=== PATIENT | male | born 1930 | race Caucasian/White ===

== ENCOUNTER 2018-12-17 14:22 | Emergency (ER) | payer MEDICARE, BC ==
--- NOTE | 2018-12-17 15:06 | ED ---
Upper Extremity Pain - HPI Summary HPI Summary: Patient is an 88 y/o male who presents to the ED c/o LUE pain. He had a cardiac catheterization done at [facility] last week. The physicians initially attempted access through his left forearm however they were not able to gain access, and the procedure was done in his right groin. Patient lives at [facility] and a nurse this morning noticed warmth to his left forearm. Patient c/o pain to the puncture site, rated a 3/10 in severity and described as itching. He denies any left hand pain or fever. Patient is on Eliquis. - History of Current Complaint Chief Complaint: EDRashSkinAbscess Stated Complaint: POSS INFLAMATION ON ARM PER PT Time Seen by Provider: 12/17/18 14:56 Hx Obtained From: Patient Mechanism Of Injury: Other - cardiac cath puncture site Onset/Duration: Still Present Timing: Constant Severity Currently: Moderate - 3/10 Pain Location: Forearm - left Character: Dull - itching Aggravating Factor(s): Nothing Alleviating Factor(s): Nothing Associated Signs & Symptoms: Negative: Fever Related History: Other: - cardiac cath recently - Allergies/Home Medications Allergies/Adverse Reactions: Allergies Allergy/AdvReac Type Severity Reaction Status Date / Time Czayzmi-Dgg-Zcx Reductase Allergy Muscle Ache Verified 12/17/18 14:33 Inhibitor MS Statins [Statins] AdvReac muscle pain Verified 06/12/17 00:14 PMH/Surg Hx/FS Hx/Imm Hx Endocrine/Hematology History: Reports: Hx Anticoagulant Therapy - Y-ASA Denies: Hx Diabetes Cardiovascular History: Reports: Hx Coronary Artery Disease, Hx Hypertension, Other Cardiovascular Problems/Disorders - bypass and aortic valve replacement; aortic valve dysfunction Denies: Hx Pacemaker/ICD Respiratory History: Reports: Hx Chronic Obstructive Pulmonary Disease (COPD) GI History: Reports: Other GI Disorders - colon ca History: Reports: Hx Benign Prostatic Hyperplasia, Other Problems/ Disorders - urgency Musculoskeletal History: Reports: Hx Arthritis - r hip, Other Musculoskeletal History - R shoulder pain Sensory History: Reports: Hx Cataracts, Hx Contacts or Glasses - reading glasses , Hx Vision Problem, Hx Hearing Aid, Hx Hearing Problem Opthamlomology History: Reports: Hx Cataracts, Hx Contacts or Glasses - reading glasses, Hx Vision Problem Neurological History: Reports: Hx Transient Ischemic Attacks (TIA) Psychiatric History: Reports: Hx Depression Denies: Hx Panic Disorder - Cancer History Cancer Type, Location and Year: Colon CA Hx Chemotherapy: Yes - Surgical History Surgery Procedure, Year, and Place: 1947 hernia. septoplasty. 1991 coronary bypass. 1995 colon ca surgery. port placed. port removed. 2002 aortic valve (followed by repair surgery d/t bleeding after - discussed with dr. doyle prior to MRI - okay to scan 1.5t). 2006 hernia. 2006 L total hip. 2013 R total hip. bilateral cataracts Hx Anesthesia Reactions: No Infectious Disease History: No Infectious Disease History: Denies: Traveled Outside the [place] in Last 30 Days - Family History Known Family History: Positive: Cardiac Disease - Social History Alcohol Use: None Hx Substance Use: No Substance Use Type: Reports: None Hx Tobacco Use: Yes Smoking Status (MU): Former Smoker Review of Systems Negative: Fever Positive: Myalgia - left forearm puncture site pain, NEGATIVE: left hand pain All Other Systems Reviewed And Are Negative: Yes Physical Exam - Summary Physical Exam Summary: Appearance: well appearing, no pain distress Skin: warm, dry, reflects adequate perfusion, warmth to distal left forearm, no ecchymosis or warmth of left hand, puncture site near right radial artery Head/face: normal Eyes: EOMI, ZENA ENT: mucous membranes moist Neck: supple, non-tender Respiratory: CTA, breath sounds present Cardiovascular: RRR, pulses symmetrical, blowing systolic murmur Abdomen: non-tender, soft Bowel Sounds: present Musculoskeletal: normal, strength/ROM intact Neuro: normal, sensory motor intact, A&Ox3 Triage Information Reviewed: Yes Vital Signs On Initial Exam: Initial Vitals Temp Pulse Resp BP Pulse Ox 97.4 F 84 18 195/107 97 12/17/18 14:26 12/17/18 14:26 12/17/18 14:26 12/17/18 14:26 12/17/18 14:26 Vital Signs Reviewed: Yes Diagnostics - Vital Signs Vital Signs Temp Pulse Resp BP Pulse Ox 12/17/18 14:26 97.4 F 84 18 195/107 97 - Laboratory Lab Statement: Any lab studies that have been ordered have been reviewed, and results considered in the medical decision making process. - Ultrasound No standard instances Ultrasound Interpretation Completed By: ED Physician, Radiologist Summary of Ultrasound Findings: US performed at bedside by ED physician: apparent left radial vein SVT. Soft Tissue US: Mild subcutaneous edema overlying the left forearm without drainable fluid collection. ED physician reviewed radiology report. Course/Dx - Course Course Of Treatment: Simple phlebitis/cellulitis treated with Augmentin here. Patient recently with vena puncture in the area. No evidence of DVT on ultrasound. - Diagnoses Differential Diagnosis/HQI/PQRI: Positive: Other - DVT, SVT, cellulitis Provider Diagnoses: Phlebitis, Cellulitis Discharge - Sign-Out/Discharge Documenting (check all that apply): Patient Departure - Discharge Patient Received Moderate/Deep Sedation with Procedure: No - Discharge Plan Condition: Improved Disposition: HOME Prescriptions: Amoxicillin/Clavulanate TAB* [Augmentin TAB 875*] 875 mg PO BID #20 tab Patient Education Materials: Superficial Thrombophlebitis (ED) Referrals: Nate Sales MD [Primary Care Provider] - Additional Instructions: Warm compresses to the area, massage and heat may help. Return if fever greater than 100.4, body aches/chills, worse, red streaking or extending redness up the arm, new symptoms or other concerns. Call your doctor first thing in the morning to schedule prompt follow-up. - Billing Disposition and Condition Condition: IMPROVED Disposition: Home - Attestation Statements Document Initiated by Scribe: Yes Documenting Scribe: Tiff Rosario Provider For Whom Ely is Documenting (Include Credential): Aurelio Schmidt MD Scribe Attestation: Tiff Calvo, scribed for Aurelio Schmidt MD on 12/17/18 at 1825. Scribe Documentation Reviewed: Yes Provider Attestation: The documentation as recorded by the Tiff reyes accurately reflects the service I personally performed and the decisions made by me, Aurelio Schmidt MD Status of Scribe Document: Viewed
[2018-12-17] MEDS ORDERED: Amoxicillin/Clavulanate TAB* 875 MG PO ONE ×2 (15:09→15:21)
[2018-12-17 17:47] VITALS: BP 128/88
== END 2018-12-17 16:43 | disposition home or self-care (01) ==
LOC: ED 14:22
DX: I80.8 Phlebitis and thrombophlebitis of other sites (principal); L03.114 Cellulitis of left upper limb; I10 Essential (primary) hypertension; I25.810 Atherosclerosis of coronary artery bypass graft(s) without angina pectoris; J44.9 Chronic obstructive pulmonary disease, unspecified; Z95.1 Presence of aortocoronary bypass graft; Z79.01 Long term (current) use of anticoagulants; Z95.2 Presence of prosthetic heart valve; Z86.73 Personal history of transient ischemic attack (TIA), and cerebral infarction without residual deficits; Z87.891 Personal history of nicotine dependence
CPT/HCPCS: 99282; A9270-GY

== ENCOUNTER 2019-07-31 12:21 | Inpatient (IN) | payer MEDICARE, OTHER ==
[2019-07-31] MEDS ORDERED: NS 0.9% 1000 ML** 1,000 ML IV ONE (12:22)
--- NOTE | 2019-07-31 12:35 | ED ---
HPI Chest Pain - HPI Summary HPI Summary: This patient is a 89 year old M brought to [facility] by EMS coming from [facility] through [facility] called at 1216. EMS reports 1000 am last known well, was reported to have aphasia noted. Per EMS, pt before 1000 AM was driven down from [place] and when arrived he was slightly aphasic per nurse. Per medical records, pt hx aortic valve replacement, CVA and is on eliquis. Per [facility]OR patient on eliquis (confirmed w [place]) so not TPA candidate. Decision made to proceed w CTA given that his last BUN/Creatinine in February were normal. Per son patient has had worsening HART for several months. Recent stent placed. Hx aortic valve (pig) which is due for replacement but is instead being medically managed. - History of Current Complaint Time Seen by Provider: 07/31/19 12:22 Hx Obtained From: EMS, Medical Records Onset/Duration: Started Hours Ago, Still Present Timing: Constant Aggravating Factor(s): Nothing Alleviating Factor(s): Nothing Associated Signs and Symptoms: Positive: Other: - slightly aphasic - Additional Pertinent History Primary Care Physician: [id number] - Allergy/Home Medications Allergies/Adverse Reactions: Allergies Allergy/AdvReac Type Severity Reaction Status Date / Time Dqojger-Rxv-Ity Reductase Allergy Muscle Ache Verified 12/17/18 14:33 Inhibitor MS Statins [Statins] AdvReac muscle pain Verified 06/12/17 00:14 Home Medications: Home Medications Acetaminophen [Acetaminophen Extra Strength] 1,000 mg PO Q8H PRN 07/31/19 [ History Confirmed 07/31/19] Amoxicillin PO (*) [Amoxicillin 500 MG CAP*] 2,000 mg PO ONCE 07/31/19 [History Confirmed 07/31/19] Apixaban* [Eliquis*] 5 mg PO BID 07/31/19 [History Confirmed 07/31/19] Menthol [Bengay Ultra Strength] 1 patch TOPICAL Q12H 07/31/19 [History Confirmed 07/31/19] Metoprolol Tartrate TAB* [Lopressor TAB*] 12.5 mg PO QAM 07/31/19 [History Confirmed 07/31/19] Metoprolol Tartrate TAB* [Lopressor TAB*] 62.5 mg PO QPM 07/31/19 [History Confirmed 07/31/19] Torsemide TAB* [Demadex*] 10 mg PO DAILY 07/31/19 [History Confirmed 07/31/19] National Institutes Of Health - NIH Scale Level of Consciousness: Alert/Keenly Responsive Ask Patient the Month and His/Her Age: One Correct/Not Aphasic Ask Pt to Open/Close Eyes and Rn Clinical Research/Release Non-Paretic Hand: Both Correctly Best Gaze (Only Horizontal Eye Movement): Normal Visual Field Testing: No Visual Loss Facial Paresis-Pt to Smile & Close Eyes or Grimace Symmetry: Minor Paralysis Motor Function - Right Arm: No Drift-Holds 10 Seconds Motor Function - Left Arm: No Drift-Holds 10 Seconds Motor Function - Right Leg: No Drift-Holds 10 Seconds Motor Function - Left Leg: No Drift-Holds 10 Seconds Limb Ataxia-Must be out of Proportion to Weakness Present: Absent Sensory (Use Pinprick to Test Arms/Legs/Trunk/Face): Normal Best Language (Describe Picture, Name Items): Some Loss Dysarthria (Read Several Words): Normal Extinction and Inattention: No Abnormality Total Score: 3 PMH/Surg Hx/FS Hx/Imm Hx Endocrine/Hematology History: Reports: Hx Anticoagulant Therapy - Y-ASA Denies: Hx Diabetes Cardiovascular History: Reports: Hx Coronary Artery Disease, Hx Hypertension, Other Cardiovascular Problems/Disorders - bypass and aortic valve replacement; aortic valve dysfunction Denies: Hx Pacemaker/ICD Respiratory History: Reports: Hx Chronic Obstructive Pulmonary Disease (COPD) GI History: Reports: Other GI Disorders - colon ca History: Reports: Hx Benign Prostatic Hyperplasia, Other Problems/ Disorders - urgency Musculoskeletal History: Reports: Hx Arthritis - r hip, Other Musculoskeletal History - R shoulder pain Sensory History: Reports: Hx Cataracts, Hx Contacts or Glasses - reading glasses , Hx Vision Problem, Hx Hearing Aid, Hx Hearing Problem Opthamlomology History: Reports: Hx Cataracts, Hx Contacts or Glasses - reading glasses, Hx Vision Problem Neurological History: Reports: Hx Transient Ischemic Attacks (TIA) Psychiatric History: Reports: Hx Depression Denies: Hx Panic Disorder - Cancer History Cancer Type, Location and Year: Colon CA Hx Chemotherapy: Yes - Surgical History Surgery Procedure, Year, and Place: 1947 hernia. septoplasty. 1991 coronary bypass. 1995 colon ca surgery. port placed. port removed. 2002 aortic valve (followed by repair surgery d/t bleeding after - discussed with dr. doyle prior to MRI - okay to scan 1.5t). 2006 hernia. 2007 L total hip. 2013 R total hip. bilateral cataracts Hx Anesthesia Reactions: No - Family History Known Family History: Positive: Cardiac Disease - Social History Alcohol Use: None Hx Substance Use: No Substance Use Type: Reports: None Hx Tobacco Use: Yes Smoking Status (MU): Former Smoker Review of Systems Neurological: Other - slightly aphasic All Other Systems Reviewed And Are Negative: Yes Physical Exam - Summary Physical Exam Summary: Constitutional: Well-developed, Well-nourished, Alert. (-) Distressed Skin: Warm, Dry HENT: Normocephalic; Atraumatic Eyes: Conjunctiva normal Neck: Musculoskeletal ROM normal neck. (-) JVD, (-) Stridor, (-) Nuchal rigidity Cardio: Rhythm regular, rate normal, Heart sounds normal; Intact distal pulses; Radial pulses are 2+ and symmetric. (+) Murmur Pulmonary/Chest wall: Effort normal. (-) Respiratory distress, (-) Wheezes, (-) Rales Abd: Soft, (-) tenderness, (-) Distension, (-) Guarding, (-) Rebound Musculoskeletal: pitting edema in ankles Lymph: (-) Cervical adenopathy Neuro: Alert, Oriented x3, mild intermittent aphasia, slight R facial droop otherwise CN 2-12 grossly intact. No dysmetria. Strength 5/5 UE/LE. SILT. Psych: Cooperative Triage Information Reviewed: Yes Vital Signs Reviewed: Yes Procedures - Sedation Patient Received Moderate/Deep Sedation with Procedure: No Diagnostics - Laboratory Result Diagrams: 07/31/19 12:46 07/31/19 12:46 Lab Statement: Any lab studies that have been ordered have been reviewed, and results considered in the medical decision making process. - Radiology Chest X-Ray Radiology Interpretation Completed By: Radiologist Summary of Radiographic Findings: Per radiologist,. Cardiomegaly with interstitial edema consistent with vascular congestion. ED physician has reviewed this imaging report. - CT Brain CT CT Interpretation Completed By: Radiologist Summary of CT Findings: Per radiologist,. 1. NO EVIDENCE FOR GROSS ACUTE INFARCT, MASS EFFECT OR HEMORRHAGE. 2. 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 ED physician has reviewed this imaging report. - EKG 1248 Cardiac Rate: NL - 64 BPM Summary of EKG Findings: An EKG at 1248 reveals normal sinus rhythm (64 BPM), nml axis, nml intervals. No STEMI. No acute changes. Chest Pain Course/Dx - Course Course Of Treatment: 81-year-old male with a history of aortic valve replacement on eliquius, hypertension, previous stroke who presents with aphasia. Initial NIHSS of 3. patient did have improvement and aphasia. 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 Patient's blood pressure decreased to around 150 systolic intervention. Updated patient's son on CT findings, plan for admission for stroke workup. Patient is not a candidate for TPA given that he is on eliquis. - Diagnoses Provider Diagnoses: Aphasia During the Visit The Following Alert/Code Occurred: Code Kelley - Provider Notifications Discussed Care Of Patient With: Nahum Mcelroy - radiologist Time Discussed With Above Provider: 12:40 Instructed by Provider To: Other - No acute stroke on CT; 1301- Lilibeth- CTA is unchanged - Critical Care Time Critical Care Time: 30-74 min - Upon my evaluation, this patient had a high probability of imminent or life-threatening deterioration due to acute stroke which required my direct attention, intervention, and personal management. I have personally provided 30 minutes of critical care time exclusive of time spent on separately billable procedures. Time includes review of laboratory data , radiology results, discussion with consultants, and monitoring for potential decompensation. Interventions were performed as documented above. Discharge ED - Sign-Out/Discharge Documenting (check all that apply): Patient Departure - admitted - Discharge Plan Condition: Stable Disposition: ADMITTED TO [facility] Referrals: Nate Sales MD [Primary Care Provider] - - Billing Disposition and Condition Condition: STABLE Disposition: Admitted to [facility] - Attestation Statements Document Initiated by Alexibe: Yes Documenting Scribe: Emily Boogie Provider For Whom Ely is Documenting (Include Credential): Dr. Pam Leon MD Scribe Attestation: Emily Calvo scribed for Dr. Pam Leon MD on 07/31/19 at 1401. Scribe Documentation Reviewed: Yes Provider Attestation: The documentation as recorded by the Emily reyes accurately reflects the service I personally performed and the decisions made by me, Dr. Pam Leon MD Status of Scribe Document: Viewed
[2019-07-31] MEDS ORDERED: Iodixanol* (CONTRAST) 320 MG/ML 100 ML SDV IV ONE (12:36)
[2019-07-31 12:55] LABS: ABS Eosinophils 0.1 10^3/ul (0-0.6); ABS Lymphocytes 0.9 10^3/ul (1.0-4.8); ABS Monocytes 0.3 10^3/ul (0-0.8); ABS Neutrophils 2.5 10^3/ul (1.5-7.7); Eosinophil % 1.7 %; Hematocrit 32 % (42-52); Hemoglobin 10.6 g/dL (14.0-18.0); Mean Corpuscular HGB Conc 33 g/dL (31-36); Mean Corpuscular Hemoglobin 29 pg (27-31); Mean Corpuscular Volume 88 fL (80-94); Mean Platelet Volume 7.1 fL (7.4-10.4); Platelet Count 152 10^3/uL (150-450); Red Blood Count 3.68 10^6 /uL (4.18-5.48); Red Cell Distribution Width 19 % (10-15); White Blood Count 3.8 10^3/uL (3.5-10.8)
[2019-07-31 13:03] LABS: Activated Partial Thrombo Time 50.1 seconds (26.0-38.0); INR 1.45 (0.82-1.09)
[2019-07-31] MEDS ORDERED: NS 0.9% 500 ML* 500 ML IV ONE (13:10)
[2019-07-31 13:15] LABS: Albumin 4.1 g/dL (3.2-5.2); Albumin/Globulin Ratio 1.4 (1-3); Calcium 9.3 mg/dL (8.6-10.3); EGFR African American 85.3 (>60); EGFR Non-African American 70.5 (>60); HDL Cholesterol 36.6 mg/dL; Potassium 3.9 mmol/L (3.5-5.0); Total Bilirubin 0.7 mg/dL (0.2-1.0); Total Protein 7.1 g/dL (6.4-8.9)
[2019-07-31 13:16] LABS: Troponin I 0.01 ng/mL (<0.03)
[2019-07-31 14:20] LABS: Urine Appearance Clear; Urine Bilirubin Negative (Negative); Urine Blood Negative (Negative); Urine Color Straw; Urine Glucose Negative (Negative); Urine Ketones Negative (Negative); Urine Nitrite Negative (Negative); Urine Protein Negative (Negative); Urine Specific Gravity 1.021 (1.010-1.030); Urine Urobilinogen Negative (Negative)
[2019-07-31] MEDS ORDERED: Acetaminophen TAB* 325 MG PO PRN (14:25)
[2019-07-31] MEDS ORDERED: Ondansetron INJ* 2 MG/ML VIAL IV PRN (14:25)
[2019-07-31] MEDS ORDERED: amLODIPine TAB* 5 MG PO ONE (14:25)
--- NOTE | 2019-07-31 17:05 | ECHO ---
*[facility]* [place] [address] Fax #: [phone] Transthoracic Echocardiogram Patient: Nate Anna : 1930 Study Date: 07/31/2019 Age: 89 Gender: M HR: 66 bpm Height: 72 in /182.9 cm BSA: 2.06 m^2 Weight: 183.6 lb /83.5 kg BMI: 25 kg/m^2 *Smelter Liner: * Lauren Monzon [facility] *Referring Physician: * Cristian Cesar *Reading Physician: * Robert Pisano MD Indications: CVA. History: Coronary artery disease. Cerebrovascular accident. Chronic obstructive pulmonary disease. PMH: Myocardial infarction. Risk factors: Hypertension. Dyslipidemia. Labs, prior tests, procedures, and surgery: Coronary artery bypass grafting. Valve surgery. Aortic valve replacement with a bioprosthetic valve. Conclusions Summary: - Left ventricle: The cavity size is normal. Wall thickness is mildly to moderately increased. Systolic function is normal. The estimated ejection fraction is 60-65%. Doppler parameters are consistent with a reversible restrictive pattern, indicative of decreased left ventricular diastolic compliance and/or increased left atrial pressure (grade 3 diastolic dysfunction). - Right ventricle: Systolic pressure is moderately increased. - Right atrium: The atrium is mildly dilated. - Mitral valve: The Mitral valve annulus appears calcified. The leaflets are mildly thickened. The findings are consistent with mild to moderate stenosis. There is mild regurgitation. The peak E-wave velocity is 1.6 m/sec. The valve area by pressure half-time is 1.5 cm^2. - Aortic valve: There is a bioprosthetic valve. The findings are consistent with moderate stenosis. DI .22 mean gradient of 31 mmhg. The peak systolic velocity is 3.7 m/sec. The systolic velocity-time integral is 97.3 cm. The mean systolic gradient is 31.0 mm Hg. The LVOT to aortic valve VTI ratio is 0.22. The valve area by the velocity-time integral method is 0.75 cm^2. - Tricuspid valve: There is moderate regurgitation. - Pulmonary arteries: Systolic pressure is moderately increased. Study data: Transthoracic echocardiogram. Procedure: Transthoracic echocardiography was performed. Image quality was fair. Complete 2D, spectral Doppler, and color flow Doppler. Location: Emergency department. Patient status: Inpatient. Patient room number: ED-10. Rhythm: Normal sinus rhythm. Findings Left ventricle: The cavity size is normal. Wall thickness is mildly to moderately increased. Systolic function is normal. The estimated ejection fraction is 60-65%. Wall motion is normal; there are no regional wall motion abnormalities. Doppler parameters are consistent with a reversible restrictive pattern, indicative of decreased left ventricular diastolic compliance and/or increased left atrial pressure (grade 3 diastolic dysfunction). Right ventricle: The cavity size is normal. Systolic function is normal. Systolic pressure is moderately increased. Left atrium: The atrium is severely dilated. Right atrium: The atrium is mildly dilated. Atrial septum: A PFO is not demonstrated by color Doppler. Mitral valve: The Mitral valve annulus appears calcified. The leaflets are mildly thickened. The findings are consistent with mild to moderate stenosis. There is mild regurgitation. Aortic valve: Not well visualized. There is a bioprosthetic valve. The findings are consistent with moderate stenosis. There is no significant regurgitation. Tricuspid valve: The leaflets are normal thickness. There is no evidence of stenosis. There is moderate regurgitation. Pulmonic valve: Not well visualized. The leaflets are normal thickness. There is no evidence of stenosis. There is trace regurgitation. Aorta: Aortic root: The aortic root is appears normal. Ascending aorta: The ascending aorta is upper normal in size. Aortic arch: The aortic arch is poorly visualized. Pericardium: There is no significant pericardial effusion. Pulmonary arteries: Not well visualized. Systolic pressure is moderately increased. Systemic veins: Inferior vena cava: The vessel is normal in size. There is (>= 50%) respiratory change in the IVC dimension. Measurements Left ventricle Value Ref Aortic valve Value Ref RENATE, LAX 4.2 cm 4.2 - 5.8 Clifford diam, ED 2.2 cm ----- ESD, LAX (L) 2.4 cm 2.5 - 4.0 Peak v, S 3.7 m/sec ----- FS, LAX 43 % 25 - 43 VTI, S 97.3 cm ----- PW, ED, LAX (H) 1.3 cm 0.6 - 1.0 Mean grad, S 31.0 mm Hg ----- FS 43 % 25 - 43 Peak grad, S 56.0 mm Hg ----- PW, ED (H) 1.3 cm 0.6 - 1.0 LVOT/AV, VTI ratio 0.22 ----- E', lat clifford, TDI (L) 5.7 cm/sec >=10.0 RAMONE, VTI 0.75 cm^2 --- -- E/e', lat clifford, 28 RAMONE, Vmax 0.75 cm^2 ----- TDI E', med clifford, TDI (L) 3.9 cm/sec >=7.0 Mitral valve Value Ref E/e', med clifford, 41 Peak E 1.6 m/sec ----- TDI Peak A 0.51 m/sec ----- E', avg, TDI 4.8 cm/sec Decel time 197 ms ----- E/e', avg, TDI (H) 33 <=14 PHT 130 ms --- -- Mean grad, D 3.0 mm Hg ----- LVOT Value Ref Peak grad, D 11.0 mm Hg ----- Diam, S 2.10 cm Peak E/A ratio 3.1 ----- Area 3.5 cm^2 MVA, PHT 1.5 cm^2 ----- Peak elke, S 0.8 m/sec VTI, S 21.0 cm Pulmonic valve Value Ref Mean grad, S 2 mm Hg Peak v, S 0.91 m/sec ----- SV 72 ml Peak grad, S 3.0 mm Hg ----- SV/bsa 35 ml/m^2 Tricuspid valve Value Ref Ventricular septum Value Ref TR peak v (H) 3.6 m/sec <=2.8 IVS, ED (H) 1.3 cm 0.6 - 1.0 Peak RV-RA grad, S 52 mm Hg ----- Right ventricle Value Ref Aortic root Value Ref RENATE, LAX 2.1 cm Root diam 3.2 cm <4.2 RENATE minor ax, A4C 3.1 cm 1.9 - 3.5 mid Ascending aorta Value Ref Pressure, S 55 mm Hg AAo AP diam, S 3.6 cm ----- Left atrium Value Ref Decending aorta Value Ref AP dim, ES 4.00 cm 3.00 - Sanjana peak elke 1.15 m/sec ----- 4.00 ML dim, A4C 4.9 cm Pulmonary artery Value Ref SI dim, A4C 5.8 cm Pressure, S 52.0 mm Hg ----- Vol/bsa, ES, 1-p (H) 38 ml/m^2 12 - 37 A4C Inferior vena cava Value Ref Vol/bsa, ES, A/L (H) 50 ml/m^2 16 - 34 Diam 2.0 cm ----- Right atrium Value Ref SI dim, ES (H) 5.5 cm 3.4 - 5.3 ML dim, ES, A4C (H) 5.1 cm 2.6 - 4.4 Estimated RAP 3 mm Hg Legend: (L) and (H) kalina values outside specified reference range. Prepared and electronically signed by Robert Pisano MD 07/31/2019 17:05
[2019-07-31] MEDS: Metoprolol Tartrate TAB* 25 MG PO SCH (17:44)
--- NOTE | 2019-07-31 18:15 | HP ---
CC: Dr. Sales; Dr. Fernando* ADMISSION HISTORY AND PHYSICAL: DATE OF ADMISSION: 07/31/19 PRIMARY CARE PROVIDER: Dr. Sales. DINKEY OPERATOR SLATE: Dr. Fernando. HEALTHCARE PROXY: His son, Weston. CODE STATUS: DNR/DNI, discussed with son, confirmed. SOURCE OF INFORMATION: History obtained from interview with the patient, discussion with his son, review of past medical records and discussion with ED physician, Dr. Leon. RELIABILITY: From the patient is poor, from all others is excellent. CHIEF COMPLAINT: Change in neurological status. 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 There was memorial on 07/21/19 after which his son stayed with him for several days, noted him to be increasingly weak, having to stop breathing, almost thought he was going to lose consciousness but did not. His mental status at baseline was described as possibly early dementia, sometimes confusing two words, but still quite intelligent and able to hold in depth conversations. Today, he went to cardiac rehab between and and was noted to be aphasic with drooling. While using an exercise biking, EMS was activated and code cotton was initiated prior to presenting to the emergency room. He scored NIH stroke scale of 3 for mild right facial palsy as well as moderate aphasia, seen in conjunction with Neurology in the emergency room. The patient's son also relays that there had been a discussion regarding replacing his aortic valve but they had opted not to do that. Additionally, he thinks there may had been a procedure within the last month prior to 07/21/19 that may had been PCI, although he is not sure. Seen in the emergency room, the patient no longer had aphasia, although had difficulty naming himself and was repeating words frequently. The son also indicates the patient has been grieving quite significantly since the time of his 's and memorial with bouts of crying. PAST MEDICAL HISTORY: Includes: 1. Bioprosthetic aortic valve replacement. 2. Hypertension. 3. CVA in 2017 and that is presenting with right-sided weakness and broad based gait. 4. TIA. 5. CAD, status post bypass. 6. Colon cancer, status post partial resection in 1995. 7. Hyperlipidemia. 8. COPD. 9. Anemia. 10. Left and right total hip replacements. 11. Eczema. 12. Insomnia. 13. BPH. 14. Inguinal hernias. 15. Depression. 16. Septoplasty and cataract surgery. HOME MEDICATIONS: Include: 1. Mirtazapine 30 mg at bedtime. 2. Torsemide 10 mg daily. 3. Viagra 100 mg as needed. 4. Nitroglycerin 0.4 mg every 5 hours as needed. 5. Metoprolol tartrate 62.5 mg in the evening and 12.5 mg in the morning. 6. Clopidogrel 75 mg daily. 7. Flomax 0.4 mg daily. 8. Multivitamin 1 tab daily. 9. Finasteride 5 mg daily. 10. Eliquis 5 mg twice daily. 11. Vitamin B12 1000 mcg daily. 12. Menthol 1 patch topically twice daily as needed. 13. Atorvastatin 40 mg daily. 14. Acetaminophen 1000 mg every 8 hours as needed. ALLERGIES: STATIN causes muscle pain. FAMILY HISTORY: His father at 66 from CAD. His mother at 46 from a CVA. SOCIAL HISTORY: A former tobacco use. No alcohol. He is a [place] resident. REVIEW OF SYSTEMS: As per HPI, obtained from the patient's son including increased shortness of breath and weakness; otherwise unable to obtain from the patient. PHYSICAL EXAMINATION GENERAL: Sitting up in bed, interactive, pleasant, in no apparent distress. VITAL SIGNS: When seen by this author 180/79, heart rate is 59, respiratory rate is 16, T-max 97.8. He is 98% on room air. HEENT: Oropharynx is clear. He has moist mucous membranes. Sclerae are anicteric. HEART: He has rales in his right base. He has a late peaking systolic ejection murmur in his right upper sternal border. He has a regular rhythm. ABDOMEN: Soft, nontender, nondistended. EXTREMITIES: Warm and well perfused. He has trace right lower extremity edema. NEUROLOGIC: He is alert and oriented x0. He cannot say his first name. He can say his last name. He keeps naming his son's name, his first name, but he is able to carry on other elements of conversation. For instance, he was requesting some lunch because he is hungry. Perseverates on being able to say his name. I do not appreciate any right facial palsy as indicated in the Neurology consult notes. His cranial nerves II through XII were intact, otherwise strength is intact throughout. Visual mckeon intact. DIAGNOSTIC STUDIES/LAB DATA: Labs reviewed: White blood cell count of 3.8, hemoglobin 10.6, platelets 152, INR is 1.5. His urine is bland. Chest x-ray: Mild interstitial edema. Brain CT: No evidence for gross acute infarct, mass effect or hemorrhage. Small old lacunar infarct in the right caudate nucleus. Head CTA: Findings consistent with hemodynamically significant stenosis in the proximal left internal carotid artery which is unchanged since 2017. No evidence of large vessel or intracranial thrombosis. 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 EKG: Mild submillimeter ST depression in inferior leads, III and aVF, no Qs, normal sinus rhythm. ASSESSMENT AND PLAN: This is an 89-year-old man with past medical history as outlined above including history of cerebrovascular accident, thromboembolic in nature, now on Xarelto; history of aortic valve replacement; coronary artery disease, status post bypass, presenting with sudden onset facial drooping and aphasia. 1. Change in neurological status: Concern for cerebrovascular accident versus transient ischemic attack. Right facial palsy was noted to be persistent on Dr. Peres's note, this is more in line with recurrent cerebrovascular accident. We will check an MRI. His lipids had been checked already and he is on the statin. Check hemoglobin A1c with ED labs. Continue home medications which include Plavix and Eliquis. 2. Hypertension, hypertensive urgency, first elevated blood pressure was systolic greater than 200 was noted to be taken while the patient was having his blood drawn. Systolic blood pressure is 180 when seen by this author. I will give him 1 dose of amlodipine and continue his home medications which include torsemide and metoprolol. If remains elevated, may need to treat p.r.n. and/or continue Norvasc. 3. Aortic valve replacement. He does have a late peaking systolic ejection murmur. We will check a transthoracic echocardiogram. We will request records from Dr. Fernando, although notably may be difficult chance day. 4. Internal carotid stenosis and anterior communicating and left anterior cerebral changes, unchanged from 2017, moderate appearing. 5. Code status: DNR/DNI. 6. DVT prophylaxis: Xarelbrian. [id number]/[facility] #: [id number] DEEP
--- NOTE | 2019-07-31 18:40 | CONS ---
CONSULTATION REPORT: DATE OF CONSULT: 07/31/19 PATIENT OF: Dr. Leon and Dr. Sales. HISTORY OF PRESENT ILLNESS: This is an 89-year-old right-handed man who was brought to cardiac rehab at [facility] today at somewhere between 10 and 11. The ambulance crew said he was dropped there abruptly shortly after 10. When we called Stephen they said this happened at 11 when they dropped him off. In any event, around this time, an aphasia was noted and he was drooling while he was on an exercise bike, there may have been some symptoms shortly before this. He was brought by ambulance to the hospital, where he was quickly evaluated and sent immediately to CT scan. CTA at time of ct was done as well because he was on Eliquis. Of note, he has had prior strokes including a TIA many years ago and then in June 2017, he had some right-sided weakness as well as wide-based gait and an MRI scan at that time showed multiple acute and subacute infarcts including his right base ganglia, his left frontotemporal area and his left columba with concern of embolic stroke. He had a CTA at that time, it showed 50% carotid stenosis bilaterally as well as some atherosclerotic disease. Also of significance, he had an echo that showed severe left atrial dilatation and echo in June 2017 that was negative for clot and negative for PFO. He has an aortic valve replacement. He has been on Eliquis at this time, so he is not a tPA candidate. OTHER MEDICAL PROBLEMS: Include coronary artery disease, status post bypass and stent; aortic valve replacement; colon cancer, status post partial colectomy ; hyperlipidemia; COPD; anemia; total hip replacement in 2006 and 2012; eczema; insomnia; hypertension; BPH; bilateral inguinal hernias; and depression. MEDICATIONS: Include Eliquis. We do not have the full list at this time. Stephen will be sending it over and I will dictate an addendum. ALLERGIES: He is allergic to STATINS, which cause muscle pain. FAMILY HISTORY: His father at 66 from coronary artery disease. Mother at 46 from a stroke. SOCIAL HISTORY: He lives at [place] and his in June. He quit smoking more than 20 years and does not drink alcohol or use drugs. REVIEW OF SYSTEMS: Limited because he was unable to give coherent history. PHYSICAL EXAM: Vital signs obtained most recently was 200/89 while the blood is being drawn. Respirations were 16, pulse was 61. He has had no fever. Temperature is not on the chart. NIH stroke scale was 3; 1 for see sheet,1 for mild right facial palsy and 1 for mild to moderate aphasia. On exam, he is alert and oriented. His speech was hesitant and he could name many, but not all objects and he tended to perseverate. He had some difficulty following commands, but could get the hang of it and he tended to perseverate. Cranial Nerves: II through XII showed no visual field cut to finger, he had a mild right facial palsy. Rest of cranial nerves II through XII are intact and normal. Motor exam revealed normal tone and strength, no pronator drift, reflexes 1. Sensation was intact to light touch. There was no extinction to double simultaneous stimulation. Chest is clear. Cardiovascular: Regular rate and rhythm. Abdomen is soft. DIAGNOSTIC STUDIES/LAB DATA: His CT scan showed no bleed and showed some white matter disease including a right caudate nuclei lacunar infarct. I reviewed the films. CTA is pending. His labs are pending. He had normal BUN and creatinine this summer. ASSESSMENT AND PLAN: Mr. Anna had acute onset of an aphasia and right facial weakness beginning 2 to 3 hours ago. He is not a tPA candidate because he is on Eliquis. I think he will not prove to have a large vessel occlusion since his NIH stroke scale 3 is relatively low and usually there is not a large vessel occlusion with an NIH stroke scale of this degree, but we will see what that shows and then proceed from there. It would be reasonable to obtain an MRI scan on him as well and further recommendations will follow the CTA. We will have to treat for blood pressures greater than 180/110, but he was being stressed at the time of his last blood pressure, so we will see what that is. I have spoken to the ER physician about treatment of his blood pressure. He will need to be admitted for further treatment and evaluation. Thank you for sharing his case. [id number]/[facility] #: [id number] DEEP
[2019-07-31] MEDS ORDERED: Apixaban* 5 MG TAB PO SCH (21:00)
[2019-07-31] MEDS: Mirtazapine TAB* 15 MG PO SCH (21:54)
[2019-08-01] MEDS: Atorvastatin* 40 MG TAB PO SCH (08:35)
[2019-08-01] MEDS: Clopidogrel TAB* 75 MG PO SCH (08:35)
[2019-08-01] MEDS: Finasteride TAB* 5 MG PO SCH (08:35)
[2019-08-01] MEDS: Multivitamins/Minerals TAB PO SCH (08:35)
[2019-08-01] MEDS: Torsemide TAB 10 MG PO SCH (08:35)
[2019-08-01] MEDS: Tamsulosin CAP* 0.4 MG PO SCH (08:35)
[2019-08-01] MEDS: Metoprolol Tartrate TAB* 25 MG PO SCH ×2 (08:36→17:30)
[2019-08-01] MEDS: amLODIPine TAB* 5 MG PO SCH (09:45)
--- NOTE | 2019-08-01 13:36 | PN ---
Subjective Date of Service: 08/01/19 Length of Stay: 1 Days Neurology is following Mr. Anna for the evaluation and management of stroke. Interval History: Mr. Anna is emotional this morning and is crying. He shares with me the loss of his recently, one month ago. He has trouble producing words and this has been a constant problem. He has difficulty naming objects. He has a mild right facial droop. He denied any weakness, numbness, swallowing impairment, or visual disturbance on either side. Review of Systems: Denied CP, SOB, or palpitations. Objective Active Medications: Acetaminophen (Tylenol Tab*) 650 mg PO Q4H PRN PRN Reason: PAIN - MILD Amlodipine Besylate (Norvasc Tab*) 5 mg PO DAILY [facility] Last Admin: 08/01/19 09:45 Dose: 5 mg Atorvastatin Calcium (Lipitor*) 40 mg PO DAILY [facility] Last Admin: 08/01/19 08:35 Dose: 40 mg Clopidogrel Bisulfate (Plavix Tab*) 75 mg PO DAILY [facility] Last Admin: 08/01/19 08:35 Dose: 75 mg Finasteride (Proscar Tab*) 5 mg PO DAILY [facility] Last Admin: 08/01/19 08:35 Dose: 5 mg Metoprolol Tartrate (Lopressor Tab*) 12.5 mg PO QAM [facility] Last Admin: 08/01/19 08:36 Dose: 12.5 mg Metoprolol Tartrate (Lopressor Tab*) 62.5 mg PO QPM [facility] Last Admin: 07/31/19 17:44 Dose: 62.5 mg Mirtazapine (Remeron Tab*) 30 mg PO BEDTIME [facility] Last Admin: 07/31/19 21:54 Dose: 30 mg Multivitamins/Minerals (Theragran/Minerals Tab*) 1 tab PO DAILY [facility] Last Admin: 08/01/19 08:35 Dose: 1 tab Ondansetron HCl (Zofran Inj*) 4 mg IV Q4H PRN PRN Reason: NAUSEA/VOMITING Tamsulosin HCl (Flomax Cap*) 0.4 mg PO DAILY [facility] Last Admin: 08/01/19 08:35 Dose: 0.4 mg Torsemide (Torsemide) 10 mg PO DAILY [facility] Last Admin: 08/01/19 08:35 Dose: 10 mg Vital Signs 07/31/19 07/31/19 07/31/19 13:44 14:00 14:14 Temperature Pulse Rate 59 67 63 Respiratory 26 27 26 Rate Blood Pressure 180/79 175/112 (mmHg) O2 Sat by Pulse 98 94 96 Oximetry 07/31/19 07/31/19 07/31/19 14:44 15:00 15:14 Temperature Pulse Rate 63 60 61 Respiratory 23 20 21 Rate Blood Pressure 188/99 170/80 (mmHg) O2 Sat by Pulse 95 97 95 Oximetry 07/31/19 07/31/19 07/31/19 15:38 15:44 16:10 Temperature 97.9 F 98.3 F Pulse Rate 66 63 63 Respiratory 18 23 23 Rate Blood Pressure 187/88 167/84 167/84 (mmHg) O2 Sat by Pulse 99 98 98 Oximetry 07/31/19 07/31/19 07/31/19 17:46 19:17 23:39 Temperature 99.1 F 97.5 F Pulse Rate 62 56 Respiratory 18 22 Rate Blood Pressure 153/60 144/59 137/58 (mmHg) O2 Sat by Pulse 96 94 Oximetry 08/01/19 08/01/19 08/01/19 03:48 07:49 08:00 Temperature 97.5 F 97.6 F Pulse Rate 67 65 Respiratory 20 22 22 Rate Blood Pressure 153/62 188/60 (mmHg) O2 Sat by Pulse 94 94 94 Oximetry Intake and Output Last 24 Hours 07/30/19 07/31/19 08/01/19 08/02/19 06:59 06:59 06:59 06:59 Intake Total 740 240 Balance 740 240 Weight 178 lb 12.8 oz Intake: IV Fluids 500 Oral 240 240 Oxygen Devices in Use Now: None Neurology Exam: General: Well nourished, well developed, and in no acute distress. Very pleasant. HEENT: Normocephelic/atraumatic, sclera anicteric, mucous membranes moist Neck: Supple Chest: Clear to auscultation bilaterally Cardiovascular: holosystolic murmur, nonradiating. Extremities: No clubbing, cyanosis, or edema Neurological Findings: Awake, alert, and oriented to person, place, and date. Language: moderate transcortical motor aphasia. He has no trouble repeating. Comprehension is intact. He has difficulty with naming and fluency. Cranial Nerve: PERRL, EOM intact, VFF, no nystagmus, right facial droop. Motor: s/s throughout, proximal and distal extremities x4 tone/bulk normal Sensation: intact to LT/PP bilaterally upper and lower extremities Deep Tendon Reflex: trace throughout. Finger to nose, rapid alternating movements intact without tremor, no dysdiadochokinesia Gait: wide based gait, no ataxia, required one person assist and a cane. He had infrequent swaying towards the right side. Result Diagrams: 07/31/19 12:46 07/31/19 12:46 Diagnostic Imaging: - CT head without contrast on 07/31/2019: No evidence for gross acute infarct, mass effect, or hemorrhage. There is a small old lacunar infarct in the right caudate nucleaus. - CTA head and neck 07/31/2019: Findings consistent with a hemodynamically significant stenosis in the the right proximal left ICA (70-80%). There is 50% ICA stenosis on the right. 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 - MRI findings are consisten with acute multifocal infarcts in the left frontal lobe. - TTE: left ventricular EF 60-65%. No PFO. 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 Nate Anna is an 89-year-old right-handed man with a history of bioprostehtic aortic valve with moderate-severe aortic stenosis, right lacunar stroke without any residual deficit, bilateral carotid stenosis with 70-80% stenosis in the left ICA, who presented from [place] with sudden onset aphasia. 1. 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 The etiology is related to [id number] emboli from proximal ipsilateral ICA stenosis. Cardioembolic stroke is unlikely since there is only one vascular territory involved. NIHSS: 3 for aphasia and facial droop. He was not a candidate for IV alteplase therapy due to being on Eliquis therapy. There is no evidence of large vessel occlusion. Recommendations: - We need to find out why the patient is on Eliquis therapy. He denied history of atrial fibrillation. - Continue clopidogrel 75 mg a day and atorvastatin 40 mg nightly. - If we find out he has history of atrial fibrillation, or history of an atrial/ ventricular thrombus, continue Eliquis therapy. - Ordered clopidogrel and aspirin response test - Please consult PT/OT/GROUND SERVICES INSTRUCTOR evaluation and treatment - DVT prophylaxis: on Eliquis - Stroke education completed with the patient and his granddaughter Maria C at bedside 2. Symptomatic left ICA stenosis. The patient failed conservative medical management. Referral to a vascular surgeon to be seen within 2-3 weeks would be the most appropriate option if the patient is willing to undergo surgery. Dr. Cesar has agreed to discuss this with family and HCP. Dr. Green ( neurovascular surgeon) sees patients in [place] once a month. Depending on the patient and family's decision, it would be reasonable to establish care with Dr. Green. 3. AComm anuerysm. Asymptomatic and is < 5 mm. Low risk for rupture (0.05%/ year). 4. Dyslipidemia: continue atorvastatin therapy
--- NOTE | 2019-08-01 15:09 | PN ---
Subjective Date of Service: 08/01/19 Interval History: Seen this AM No complaints but frustrated with language difficulty Objective Active Medications: Acetaminophen (Tylenol Tab*) 650 mg PO Q4H PRN PRN Reason: PAIN - MILD Amlodipine Besylate (Norvasc Tab*) 5 mg PO DAILY [facility] Last Admin: 08/01/19 09:45 Dose: 5 mg Apixaban (Eliquis*) 5 mg PO BID [facility] Atorvastatin Calcium (Lipitor*) 40 mg PO DAILY [facility] Last Admin: 08/01/19 08:35 Dose: 40 mg Clopidogrel Bisulfate (Plavix Tab*) 75 mg PO DAILY [facility] Last Admin: 08/01/19 08:35 Dose: 75 mg Finasteride (Proscar Tab*) 5 mg PO DAILY [facility] Last Admin: 08/01/19 08:35 Dose: 5 mg Metoprolol Tartrate (Lopressor Tab*) 12.5 mg PO QAM [facility] Last Admin: 08/01/19 08:36 Dose: 12.5 mg Metoprolol Tartrate (Lopressor Tab*) 62.5 mg PO QPM [facility] Last Admin: 07/31/19 17:44 Dose: 62.5 mg Mirtazapine (Remeron Tab*) 30 mg PO BEDTIME [facility] Last Admin: 07/31/19 21:54 Dose: 30 mg Multivitamins/Minerals (Theragran/Minerals Tab*) 1 tab PO DAILY [facility] Last Admin: 08/01/19 08:35 Dose: 1 tab Ondansetron HCl (Zofran Inj*) 4 mg IV Q4H PRN PRN Reason: NAUSEA/VOMITING Tamsulosin HCl (Flomax Cap*) 0.4 mg PO DAILY [facility] Last Admin: 08/01/19 08:35 Dose: 0.4 mg Torsemide (Torsemide) 10 mg PO DAILY [facility] Last Admin: 08/01/19 08:35 Dose: 10 mg Vital Signs - 8 hr 08/01/19 08/01/19 08/01/19 07:49 08:00 09:30 Temperature 97.6 F Pulse Rate 65 Respiratory 22 22 Rate Blood Pressure 188/60 170/82 (mmHg) O2 Sat by Pulse 94 94 Oximetry Oxygen Devices in Use Now: None Appearance: NAD Eyes: No Scleral Icterus, PERRLA Ears/Nose/Mouth/Throat: NL Teeth, Lips, Gums, Clear Oropharnyx Neck: NL Appearance and Movements; NL JVP, Trachea Midline Respiratory: Symmetrical Chest Expansion and Respiratory Effort, Clear to Auscultation Cardiovascular: RRR, - - late peaking high pitched [place] loudest in RUSB Abdominal: NL Sounds; No Tenderness; No Distention, No Hepatosplenomegaly Lymphatic: No Cervical Adenopathy Extremities: No Edema, No Clubbing, Cyanosis Neurological: - - Difficulty with first name, slurred speech, right facial droop Result Diagrams: 07/31/19 12:46 07/31/19 12:46 Diagnostic Imaging: - CT head without contrast on 07/31/2019: No evidence for gross acute infarct, mass effect, or hemorrhage. There is a small old lacunar infarct in the right caudate nucleaus. - CTA head and neck 07/31/2019: Findings consistent with a hemodynamically significant stenosis in the the right proximal left ICA (70-80%). There is 50% ICA stenosis on the right. 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 - MRI findings are consisten with acute multifocal infarcts in the left frontal lobe. - TTE: left ventricular EF 60-65%. No PFO. 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 - Total cholesterol: 103 LDL: 55 Assess/Plan/Problems-Billing Assessment: 89 yo M h/o AVR, dCHF, CAD/CABG embolic CVAs in 2017 presented with embolic CVAs - Patient Problems (1) Aortic stenosis Comment: At least moderate on TTE Reportedly declined repeat surgery Requesting records from PCP and management specialist (2) CAD (coronary artery disease) Comment: Reported recent [facility] records from [facility] c/w plavix (3) CVA (cerebral vascular accident) Code(s): I63.9 - CEREBRAL INFARCTION, UNSPECIFIED Comment: Suspect from left IC stenosis Will discuss possible intervention with patient and arrange follow up as necessary Plavix, statin c/w eliquis and request records from PCP and management specialist regarding why it was started or if known afib (4) HTN (hypertension) Comment: norvasc metoprolol (5) DVT (deep venous thrombosis) Comment: [place]
[2019-08-01] MEDS: Mirtazapine TAB* 15 MG PO SCH (20:59)
[2019-08-01] MEDS: Apixaban* 5 MG TAB PO SCH (21:00)
[2019-08-02] MEDS: amLODIPine TAB* 5 MG PO SCH (05:59)
[2019-08-02] MEDS: Metoprolol Tartrate TAB* 25 MG PO SCH ×2 (08:57→17:24)
[2019-08-02] MEDS: Clopidogrel TAB* 75 MG PO SCH (08:57)
[2019-08-02] MEDS: Apixaban* 5 MG TAB PO SCH ×2 (08:57→22:18)
[2019-08-02] MEDS: Multivitamins/Minerals TAB PO SCH (08:57)
[2019-08-02] MEDS: Atorvastatin* 40 MG TAB PO SCH (08:57)
[2019-08-02] MEDS: Tamsulosin CAP* 0.4 MG PO SCH (08:57)
[2019-08-02] MEDS: Finasteride TAB* 5 MG PO SCH (08:57)
[2019-08-02] MEDS: Torsemide TAB 10 MG PO SCH (08:57)
--- NOTE | 2019-08-02 15:44 | PN ---
Subjective Date of Service: 08/02/19 Length of Stay: 2 Days Neurology is following for stroke. Interval History: He feels better today. He is able to speak but with a low monotonous voice. He denied any headache, visual disturbance, or focal weakness. He still feels sad and cried during our interview. He's been walking around the hallway yesterday. According to Maria C, he has had less drooling. While walking the patient today, he informed me that he was on aspirin and Eliquis at home. He is not sure if he was taking Plavix, but he stated that he may have been. It's unclear. In [facility] [place], the patient is not on Plavix and was only on Eliquis and aspirin. Labs, imaging, and other diagnostic tests: - CT head without contrast on 07/31/2019: No evidence for gross acute infarct, mass effect, or hemorrhage. There is a small old lacunar infarct in the right caudate nucleaus. - CTA head and neck 07/31/2019: Findings consistent with a hemodynamically significant stenosis in the the right proximal left ICA (70-80%). There is 50% ICA stenosis on the right. 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 - MRI findings are consisten with acute multifocal infarcts in the left frontal lobe. - TTE: left ventricular EF 60-65%. No PFO. 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 Objective Active Medications: Acetaminophen (Tylenol Tab*) 650 mg PO Q4H PRN PRN Reason: PAIN - MILD Amlodipine Besylate (Norvasc Tab*) 5 mg PO DAILY [facility] Last Admin: 08/02/19 05:59 Dose: 5 mg Apixaban (Eliquis*) 5 mg PO BID [facility] Last Admin: 08/02/19 08:57 Dose: 5 mg Atorvastatin Calcium (Lipitor*) 40 mg PO DAILY [facility] Last Admin: 08/02/19 08:57 Dose: 40 mg Clopidogrel Bisulfate (Plavix Tab*) 75 mg PO DAILY [facility] Finasteride (Proscar Tab*) 5 mg PO DAILY [facility] Last Admin: 08/02/19 08:57 Dose: 5 mg Metoprolol Tartrate (Lopressor Tab*) 12.5 mg PO QAM [facility] Last Admin: 08/02/19 08:57 Dose: 12.5 mg Metoprolol Tartrate (Lopressor Tab*) 62.5 mg PO QPM [facility] Last Admin: 08/01/19 17:30 Dose: 62.5 mg Mirtazapine (Remeron Tab*) 30 mg PO BEDTIME [facility] Last Admin: 08/01/19 20:59 Dose: 30 mg Multivitamins/Minerals (Theragran/Minerals Tab*) 1 tab PO DAILY [facility] Last Admin: 08/02/19 08:57 Dose: 1 tab Ondansetron HCl (Zofran Inj*) 4 mg IV Q4H PRN PRN Reason: NAUSEA/VOMITING Tamsulosin HCl (Flomax Cap*) 0.4 mg PO DAILY [facility] Last Admin: 08/02/19 08:57 Dose: 0.4 mg Torsemide (Torsemide) 10 mg PO DAILY [facility] Last Admin: 08/02/19 08:57 Dose: 10 mg Vital Signs 08/01/19 08/01/19 08/01/19 15:49 19:58 23:22 Temperature 97.4 F 97.1 F 97.8 F Pulse Rate 64 58 59 Respiratory 18 20 17 Rate Blood Pressure 152/66 143/67 171/74 (mmHg) O2 Sat by Pulse 97 95 96 Oximetry 08/02/19 08/02/19 08/02/19 00:03 03:15 04:46 Temperature 97.3 F 97.4 F Pulse Rate 61 59 Respiratory 20 20 Rate Blood Pressure 180/78 174/75 160/60 (mmHg) O2 Sat by Pulse 98 98 Oximetry 08/02/19 08/02/19 08/02/19 07:15 08:00 11:17 Temperature 97.2 F 97.2 F Pulse Rate 62 59 Respiratory 20 20 Rate Blood Pressure 168/74 166/64 (mmHg) O2 Sat by Pulse 96 96 97 Oximetry 08/02/19 15:32 Temperature 98.1 F Pulse Rate 65 Respiratory 16 Rate Blood Pressure 152/63 (mmHg) O2 Sat by Pulse 97 Oximetry Intake and Output Last 24 Hours 07/31/19 08/01/19 08/02/19 08/03/19 06:59 06:59 06:59 06:59 Intake Total 740 790 570 Output Total 525 Balance 740 265 570 Weight 178 lb 12.8 oz Intake: IV Fluids 500 Oral 240 790 570 Output: Urine 525 Other: # Bowel Movements 1 # Voids 3 Oxygen Devices in Use Now: None Neurology Exam: General: Well nourished, well developed, and in no acute distress. Very pleasant. HEENT: Normocephelic/atraumatic, sclera anicteric, mucous membranes moist Neck: Supple Chest: Clear to auscultation bilaterally Cardiovascular: holosystolic murmur, nonradiating. Extremities: No clubbing, cyanosis, or edema Neurological Findings: Awake, alert, and oriented to person, place, and date. Language: moderate transcortical motor aphasia. He has no trouble repeating. Comprehension is intact. He has difficulty with naming and fluency. Cranial Nerve: PERRL, EOM intact, VFF, no nystagmus, right facial droop. Motor: s/s throughout, proximal and distal extremities x4 tone/bulk normal Sensation: intact to LT/PP bilaterally upper and lower extremities Deep Tendon Reflex: trace throughout. Finger to nose, rapid alternating movements intact without tremor, no dysdiadochokinesia Gait: wide based gait, no ataxia, required one person assist and a cane. He had infrequent swaying towards the right side. Result Diagrams: 07/31/19 12:46 07/31/19 12:46 Diagnostic Imaging: - CT head without contrast on 07/31/2019: No evidence for gross acute infarct, mass effect, or hemorrhage. There is a small old lacunar infarct in the right caudate nucleaus. - CTA head and neck 07/31/2019: Findings consistent with a hemodynamically significant stenosis in the the right proximal left ICA (70-80%). There is 50% ICA stenosis on the right. 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 - MRI findings are consisten with acute multifocal infarcts in the left frontal lobe. - TTE: left ventricular EF 60-65%. No PFO. 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 1. 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 The etiology is suspected to be related to [id number] emboli from proximal ipsilateral ICA stenosis. Cardioembolic stroke is unlikely since there is only one vascular territory involved. NIHSS: 3 for aphasia and facial droop. He was not a candidate for IV alteplase therapy due to being on Eliquis therapy. There is no evidence of large vessel occlusion. Recommendations: - The patient was on Eliquis and aspirin therapy. He was apparently no taking clopidogrel at home, according to Dr. Cesar and the MAR in [facility]. - Continue clopidogrel 75 mg a day and atorvastatin 40 mg nightly. - Continue Eliquis 5 mg twice daily. - There is no TEG platelet mapping available at [facility], so this test was not ordered. - Recommendations per PT/OT/ACTUARIAL TECHNICIAN - DVT prophylaxis: on Eliquis - Stroke education completed with the patient and his granddaughter Maria C at bedside 2. Symptomatic left ICA stenosis. The patient failed conservative medical management. Family and the patient are contemplating any further surgery. The patient had declined aortic valve surgery in the past. Dr. Cesar will provide family with options. Referral to a vascular surgeon to be seen within 2-3 weeks would be the most appropriate option if the patient is willing to undergo carotid surgery. Dr. Green (neurovascular surgeon) sees patients in [place] once a month. Depending on the patient and family's decision, it would be reasonable to establish care with Dr. Green. 3. AComm anuerysm. Asymptomatic and is < 5 mm. Low risk for rupture (0.05%/ year). 4. Dyslipidemia: continue atorvastatin therapy 5. Reported history of paroxysmal atrial fibrillation: continue Eliquis I will sign off but please note that I am available for any questions. I will set the patient up with a neurology follow-up in 3-4 weeks.
--- NOTE | 2019-08-02 17:27 | PN ---
Subjective Date of Service: 08/02/19 Interval History: Seen with granddaughter and son at bedside Pt feeling better today, speech is improving No complaints Objective Active Medications: Acetaminophen (Tylenol Tab*) 650 mg PO Q4H PRN PRN Reason: PAIN - MILD Amlodipine Besylate (Norvasc Tab*) 5 mg PO DAILY [facility] Last Admin: 08/02/19 05:59 Dose: 5 mg Apixaban (Eliquis*) 5 mg PO BID [facility] Last Admin: 08/02/19 08:57 Dose: 5 mg Atorvastatin Calcium (Lipitor*) 40 mg PO DAILY [facility] Last Admin: 08/02/19 08:57 Dose: 40 mg Clopidogrel Bisulfate (Plavix Tab*) 75 mg PO DAILY [facility] Finasteride (Proscar Tab*) 5 mg PO DAILY [facility] Last Admin: 08/02/19 08:57 Dose: 5 mg Metoprolol Tartrate (Lopressor Tab*) 12.5 mg PO QAM [facility] Last Admin: 08/02/19 08:57 Dose: 12.5 mg Metoprolol Tartrate (Lopressor Tab*) 62.5 mg PO QPM [facility] Last Admin: 08/01/19 17:30 Dose: 62.5 mg Mirtazapine (Remeron Tab*) 30 mg PO BEDTIME [facility] Last Admin: 08/01/19 20:59 Dose: 30 mg Multivitamins/Minerals (Theragran/Minerals Tab*) 1 tab PO DAILY [facility] Last Admin: 08/02/19 08:57 Dose: 1 tab Ondansetron HCl (Zofran Inj*) 4 mg IV Q4H PRN PRN Reason: NAUSEA/VOMITING Tamsulosin HCl (Flomax Cap*) 0.4 mg PO DAILY [facility] Last Admin: 08/02/19 08:57 Dose: 0.4 mg Torsemide (Torsemide) 10 mg PO DAILY [facility] Last Admin: 08/02/19 08:57 Dose: 10 mg Vital Signs - 8 hr 08/02/19 08/02/19 11:17 15:32 Temperature 97.2 F 98.1 F Pulse Rate 59 65 Respiratory 20 16 Rate Blood Pressure 166/64 152/63 (mmHg) O2 Sat by Pulse 97 97 Oximetry Oxygen Devices in Use Now: None Appearance: sitting in chair, NAD Eyes: No Scleral Icterus Ears/Nose/Mouth/Throat: NL Teeth, Lips, Gums, Clear Oropharnyx Neck: NL Appearance and Movements; NL JVP, Trachea Midline Respiratory: Symmetrical Chest Expansion and Respiratory Effort, Clear to Auscultation Cardiovascular: RRR Abdominal: NL Sounds; No Tenderness; No Distention, No Hepatosplenomegaly Lymphatic: No Cervical Adenopathy Extremities: No Edema Neurological: Alert and Oriented x 3, - - aphasic but able to produce words slowly, AOx3, mild right facial droop Result Diagrams: 07/31/19 12:46 07/31/19 12:46 Diagnostic Imaging: - CT head without contrast on 07/31/2019: No evidence for gross acute infarct, mass effect, or hemorrhage. There is a small old lacunar infarct in the right caudate nucleaus. - CTA head and neck 07/31/2019: Findings consistent with a hemodynamically significant stenosis in the the right proximal left ICA (70-80%). There is 50% ICA stenosis on the right. 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 - MRI findings are consisten with acute multifocal infarcts in the left frontal lobe. - TTE: left ventricular EF 60-65%. No PFO. 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 - Total cholesterol: 103 LDL: 55 Assess/Plan/Problems-Billing Assessment: 89 yo M h/o AVR, dCHF, CAD/CABG embolic CVAs in 2017 presented with embolic CVAs - Patient Problems (1) CVA (cerebral vascular accident) Code(s): I63.9 - CEREBRAL INFARCTION, UNSPECIFIED Comment: Suspect from left IC stenosis Pt will f/u with neurology and arrange for vascular f/u if desired Was no ASA and was not on plavix prior to stay (cards records obtained) start Plavix and stop ASA c/w statin c/w eliquis (there was brief afib when monitored by cards in 2017) (2) CAD (coronary artery disease) Comment: Reported recent C where they did not find CAD but did find subclavian stenosis s/p angioplasty c/w plavix h/o CABG (3) Aortic stenosis Comment: At least moderate on TTE h/o AVR (4) HTN (hypertension) Comment: norvasc metoprolol (5) DVT (deep venous thrombosis) Comment: sierra
[2019-08-02] MEDS: Mirtazapine TAB* 15 MG PO SCH (22:18)
[2019-08-03] MEDS: Tamsulosin CAP* 0.4 MG PO SCH (08:22)
[2019-08-03] MEDS: Atorvastatin* 40 MG TAB PO SCH (08:22)
[2019-08-03] MEDS: Metoprolol Tartrate TAB* 25 MG PO SCH (08:22)
[2019-08-03] MEDS: Multivitamins/Minerals TAB PO SCH (08:22)
[2019-08-03] MEDS: Apixaban* 5 MG TAB PO SCH (08:22)
[2019-08-03] MEDS: Torsemide TAB 10 MG PO SCH (08:23)
[2019-08-03] MEDS: amLODIPine TAB* 5 MG PO SCH (08:23)
[2019-08-03] MEDS: Finasteride TAB* 5 MG PO SCH (08:23)
[2019-08-03] MEDS ORDERED: Aspirin EC TAB* 325 MG PO SCH (09:00)
[2019-08-03] MEDS ORDERED: Clopidogrel TAB* 75 MG PO SCH (09:00)
--- NOTE | 2019-08-03 11:56 | DS ---
CC: Dr. Sales* DISCHARGE SUMMARY: DATE OF ADMISSION: 07/31/19 DATE OF DISCHARGE: 08/03/19 PRIMARY CARE PROVIDER: Dr. Sales. DISPOSITION ON DISCHARGE: [place]. CONDITION ON DISCHARGE: Improved. PRIMARY DIAGNOSES: 1. Acute multifocal infarction in the left frontal lobe. 2. Left internal carotid artery stenosis. SECONDARY DIAGNOSES: Include: 1. Coronary artery disease, status post coronary artery bypass grafting and recent left subclavian artery angioplasty in December. 2. History of bioprosthetic aortic valve for at least moderate aortic valve stenosis. 3. Hypertension. 4. History of cerebrovascular accident in 2017. 5. Chronic obstructive pulmonary disease. 6. Anemia. 7. Insomnia. 8. Depression. 9. Atrial fibrillation. MEDICATIONS ON DISCHARGE: 1. Mirtazapine 30 mg at bedtime. 2. Torsemide 10 mg daily. 3. Viagra 100 mg once as needed. 4. Nitroglycerin 0.4 mg every 5 minutes as needed for pain. 5. Metoprolol tartrate 62.5 mg in the evening and 12.5 mg in the morning. 6. Clopidogrel 75 mg daily. 7. Tamsulosin 0.4 mg daily. 8. Multivitamin 1 tab daily. 9. Finasteride 5 mg daily. 10. Eliquis 5 mg twice daily. 11. Vitamin B12 1000 mcg daily. 12. Menthol 1 patch topically every 12 hours. 13. Atorvastatin 40 mg daily. 14. Acetaminophen 1000 mg every 8 hours as needed. 15. Amlodipine 5 mg daily. Please note the initiation of amlodipine for hypertension. PERTINENT IMAGING PERFORMED DURING THE HOSPITAL STAY: Brain MRI, impression: Acute multifocal infarcts in the left frontal lobe. Head CTA, impression: Hemodynamically significant stenosis in the proximal left internal carotid artery 70% to 80%. No evidence for large vessel intracranial thrombosis. 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 HISTORY OF PRESENT ILLNESS AND HOSPITAL COURSE: This is an 89-year-old man with past medical history as outlined in the history of present illness on the day of admission including history of CVAs in 2017, which are thought to be embolic in nature. He was noted to have brief atrial fibrillation on a Holter monitor performed by Dr. Fernando per Dr. Fernando's records, after which he has been maintained on Eliquis. At that time, he was also noted to have internal carotid artery on the left, was not intervened upon at that time, however, presented at this time with frontal multifocal infarcts in the left frontal lobe thought to be artery-artery embolization from internal carotid artery. The patient had significant aphasia on the date of presentation, improved dramatically throughout the hospital stay, still was dysarthric on the day of discharge, however, able to carry out a conversation, name all objects. His physical condition dramatically improved as well and was working well with Physical Therapy. His prognosis for full recovery is very good at this point. He was noted to be hypertensive throughout the hospital stay, was started on 5 mg of amlodipine with good control. Per Dr. Fernando's records, he had been started on aspirin status post balloon angioplasty of subclavian artery, which was thought to be blocking his DELGADILLO graft. His aspirin is now changed to clopidogrel, which was not included in any of the med reconciliations from Dr. Fernando's office. Hopefully, the change will impart some benefit to the patient status post multifocal infarcts. The patient will follow up with Neurology status post hospital stay. I had the opportunity to schedule with Dr. Johns, Vascular Surgery, who comes from [place] to critical access hospital in order to discuss potential internal carotid or carotid endarterectomy. At this point , the patient unclear whether he will pursue a carotid endarterectomy, but would like to discuss with Neurology and possible Vascular Surgery at a later time. The patient is being discharged to [facility] for additional services status post stroke with hope that he improves, will not need these services in the future. At followup, please: 1. Continue to deliver rehab services that include speech and physical therapy. 2. The patient should be maintained on a nectar thick fluid without straws. Reevaluate as the patient's function improves and readjust as necessary. I suspect as has his speech improved so will his swallowing function. 3. Ensure the patient follows up with Neurology. 4. The patient recently started on Remeron prior to this hospital stay, can titrate as necessary for depression. Reasons to return to the hospital including, but are not limited to, recurrent or worsening symptoms, asymmetric strength, worsening dysarthria, lethargy, chest pain, shortness of breath, nausea, vomiting, lightheadedness, loss of consciousness, or inability to obtain or tolerate medications was discussed with the patient; he acknowledged understanding. TIME SPENT: Greater than 60 minutes was spent on the discharge of this patient , greater than half was spent [id number] with the patient. [id number]/[facility] #: [id number] MARCELINOD
[2019-08-03 12:54] VITALS: BP 142/61
== END 2019-08-03 14:00 | DRG 65 ==
LOC: ED 12:21 → MEDTELE 14:25 → OBSVTOIN 17:30
PROVIDERS: ADMIT Internal Medicine; ATTEND Internal Medicine
DX: I63.412 Cerebral infarction due to embolism of left middle cerebral artery (principal); I50.32 Chronic diastolic (congestive) heart failure; R47.01 Aphasia; I25.10 Atherosclerotic heart disease of native coronary artery without angina pectoris; E78.5 Hyperlipidemia, unspecified; J44.9 Chronic obstructive pulmonary disease, unspecified; N40.0 Benign prostatic hyperplasia without lower urinary tract symptoms; F32.9 Major depressive disorder, single episode, unspecified; R29.810 Facial weakness; R29.703 NIHSS score 3; I65.23 Occlusion and stenosis of bilateral carotid arteries; I48.0 Paroxysmal atrial fibrillation; H91.90 Unspecified hearing loss, unspecified ear; I67.1 Cerebral aneurysm, nonruptured; Z66 Do not resuscitate; R47.1 Dysarthria and anarthria; I16.0 Hypertensive urgency; I11.0 Hypertensive heart disease with heart failure; D64.9 Anemia, unspecified; G47.00 Insomnia, unspecified; Z96.641 Presence of right artificial hip joint; Z79.02 Long term (current) use of antithrombotics/antiplatelets; Z95.1 Presence of aortocoronary bypass graft; Z95.5 Presence of coronary angioplasty implant and graft; Z95.2 Presence of prosthetic heart valve; Z85.038 Personal history of other malignant neoplasm of large intestine; Z88.8 Allergy status to other drugs, medicaments and biological substances; Z87.891 Personal history of nicotine dependence; Z86.73 Personal history of transient ischemic attack (TIA), and cerebral infarction without residual deficits; Z79.01 Long term (current) use of anticoagulants
CPT/HCPCS: 36415; 70450; 70496; 70498; 70551; 71045; 80053; 80061; 81003; 83036; 83605; 84484; 85025; 85610; 85730; 93005; 93306; 99285; A9270-GY; G0378; G8978-GP-CJ; G8979-GP-CI; G8987-GO-CK; G8988-GO-CI; Q9967

== ENCOUNTER 2019-09-19 22:07 | Emergency (ER) | payer MEDICARE, OTHER ==
--- NOTE | 2019-09-19 22:42 | ED ---
Lower Extremity - HPI Summary HPI Summary: This pt is an 89 Y/O M brought to [facility] after a fall that occurred after leaving his bathroom this evening. He states that his L hip is in pain and rated a 5/10 in severity. He states that he was unable to stand on his own. He denies any fevers, chills, headaches, LOC, head injury, and N/V. He states that he had a recent stroke on 08/08/2019 and has been at [facility] for further therapies and treatment. He has aggravating factors with movement of his L leg. He states that resting is improving his pain. He is currently on eliquis. - History of Current Complaint Chief Complaint: EDFall Stated Complaint: LT HIP PAIN PER EMS Time Seen by Provider: 09/19/19 22:33 Hx Obtained From: Patient Mechanism Of Injury: Fall From A Standing Position Onset of Pain: Immediate Onset/Duration: Still Present Severity Initially: Moderate Severity Currently: Moderate Pain Intensity: 5 Pain Scale Used: 0-10 Numeric Timing: Constant Location: Is Discrete @ - L hip Associated Signs And Symptoms: Positive: Negative - chills, headaches, LOC, head injury, and N/V, Other - POSITIVE: L hip pain. Negative: Fever Aggravating Factor(s): Movement - L leg Alleviating Factor(s): Rest - Allergies/Home Medications Allergies/Adverse Reactions: Allergies Allergy/AdvReac Type Severity Reaction Status Date / Time [id number] Reductase Allergy Muscle Ache Verified 12/17/18 14:33 Inhibitor PMH/Surg Hx/FS Hx/Imm Hx Previously Healthy: Yes Endocrine/Hematology History: Reports: Hx Anticoagulant Therapy - Y-ASA Denies: Hx Diabetes Cardiovascular History: Reports: Hx Coronary Artery Disease, Hx Hypertension, Other Cardiovascular Problems/Disorders - bypass and aortic valve replacement; aortic valve dysfunction Denies: Hx Pacemaker/ICD Respiratory History: Reports: Hx Chronic Obstructive Pulmonary Disease (COPD) GI History: Reports: Other GI Disorders - colon ca History: Reports: Hx Benign Prostatic Hyperplasia, Other Problems/ Disorders - urgency Denies: Hx Renal Disease Musculoskeletal History: Reports: Hx Arthritis - r hip, Other Musculoskeletal History - R shoulder pain Sensory History: Reports: Hx Cataracts, Hx Contacts or Glasses, Hx Vision Problem, Hx Hearing Aid, Hx Hearing Problem Opthamlomology History: Reports: Hx Cataracts, Hx Contacts or Glasses, Hx Vision Problem Neurological History: Reports: Hx Transient Ischemic Attacks (TIA) Psychiatric History: Reports: Hx Depression Denies: Hx Panic Disorder - Cancer History Cancer Type, Location and Year: Colon CA Hx Chemotherapy: Yes - Surgical History Surgery Procedure, Year, and Place: 1947 hernia. septoplasty. 1991 coronary bypass. 1995 colon ca surgery. port placed. port removed. 2002 aortic valve (followed by repair surgery d/t bleeding after - discussed with dr. doyle prior to MRI - okay to scan 1.5t). 2005 hernia. 2006 L total hip. 2012 R total hip. bilateral cataracts Hx Anesthesia Reactions: No Infectious Disease History: No Infectious Disease History: Denies: Traveled Outside the [place] in Last 30 Days - Family History Known Family History: Positive: Cardiac Disease - Social History Alcohol Use: None Hx Substance Use: No Substance Use Type: Reports: None Hx Tobacco Use: Yes Smoking Status (MU): Former Smoker Review of Systems Constitutional: Negative - head injury Negative: Fever, Chills Negative: Vomiting, Nausea Neurological/Mental Status: Negative - LOC Negative: Headache All Other Systems Reviewed And Are Negative: Yes Physical Exam - Summary Physical Exam Summary: Appearance: Well-appearing, Well-nourished, lying in bed comfortably Skin: Warm, dry, no obvious rash, no obvious external signs of head truama Eyes: sclera anicteric, no conjunctival pallor ENT: mucous membranes moist, pharynx appears normal Neck: Supple, nontender Respiratory: Clear to auscultation, no signs of respiratory distress Cardiovascular: Normal S1, S2. No murmurs. Normal distal pulses in tibial and radial bilaterally. Abdomen: Soft, nontender, normal active bowel sounds present Musculoskeletal: Normal, Strength/ROM Intact, tenderness over the greater trochanter of the L hip, no obvious pain with hip rotation or flexion. Neurological: A&Ox3, awake and alert, mentation is normal, speech is fluent and appropriate Psychiatric: affect is normal, does not appear anxious or depressed GCS: 15 Triage Information Reviewed: Yes Vital Signs On Initial Exam: Initial Vitals Temp Pulse Resp BP Pulse Ox 98.1 F 53 18 141/61 95 09/19/19 22:17 09/19/19 22:17 09/19/19 22:17 09/19/19 22:17 09/19/19 22:17 Vital Signs Reviewed: Yes - [place] Coma Scale Best Eye Response: 4 - Spontaneous Best Motor Response: 6 - Obeys Commands Best Verbal Response: 5 - Oriented Coma Scale Total: 15 Procedures - Sedation Patient Received Moderate/Deep Sedation with Procedure: No Diagnostics - Vital Signs Vital Signs Temp Pulse Resp BP Pulse Ox 09/19/19 22:17 98.1 F 53 18 141/61 95 - Laboratory Lab Statement: Any lab studies that have been ordered have been reviewed, and results considered in the medical decision making process. - Radiology Hip/Pelvis X-Ray Radiology Interpretation Completed By: ED Physician Summary of Radiographic Findings: Bilateral hip prosthesis, no periprostehtic fracture, no pelvic fracture. Pending offical review. - CT Brain CT CT Interpretation Completed By: Radiologist Summary of CT Findings: 1. There is stable age-related diffuse cerebral volume loss and chronic. microvascular ischemic disease. There are new small foci of encephalomalacia in. the left frontal lobe suspicious for chronic infarct. 2. No acute intracranial pathology. ED physician has reviewed this report. Lower Extremity Course/Dx - Course Course Of Treatment: This pt is an 89 Y/O M brought to [facility] after a fall that occurred after leaving his bathroom this evening. He states that his L hip is in pain and rated a 5/10 in severity. He states that he was unable to stand on his own. He denies any fevers, chills, headaches, LOC, head injury, and N/V. He states that he had a recent stroke on 08/08/2019 and has been at [facility] for further therapies and treatment. His PE found that he has tenderness over the greater trochanter of the L hip, no obvious pain with hip rotation or flexion, and no obvious external signs of head truama. His Hip/ Pelvis X-Ray shows the following: Bilateral hip prosthesis, no periprostehtic fracture, no pelvic fracture. His Brain CT shows: 1. There is stable age- related diffuse cerebral volume loss and chronic. microvascular ischemic disease. There are new small foci of encephalomalacia in the left frontal lobe suspicious for chronic infarct. 2. No acute intracranial pathology. - Diagnoses Provider Diagnoses: Contusion, hip Discharge ED - Sign-Out/Discharge Documenting (check all that apply): Patient Departure - discharge - Discharge Plan Condition: Good Disposition: HOME Patient Education Materials: Contusion in Adults (ED) Referrals: [facility] [Outside] - If Needed - Billing Disposition and Condition Condition: GOOD Disposition: Home - Attestation Statements Document Initiated by E[place]: Yes Documenting Scribe: Derrell Barney Provider For Whom Ely is Documenting (Include Credential): Sharif Ferreira MD Scribe Attestation: Derrell Calvo, scribed for Sharif Ferreira MD on 09/21/19 at 0353. Scribe Documentation Reviewed: Yes Provider Attestation: The documentation as recorded by the Derrell reyes accurately reflects the service I personally performed and the decisions made by me, Sharif Ferreira MD Status of Scribe Document: Viewed
--- OUTSIDE RECORDS SUMMARY | 2019-09-19 22:56 | XMS REPORT | Summary of Care ---
:1930 Author Organization [facility] Address [address] [facility] [place] [address] Care Team Providers Name Role Phone Nate Sales Primary Care Provider Carine Wang [employer] Nurse Practitioner Primary Care Reason for Visit Reason Comments Transitional Care Management [facility] 07/31-08/03/19 dx: CVA also from skilled to c -house at [facility] Edema concerned with weight gain despite medication (torsemide) Form Completion review MOLST form Hypertension f/u Coronary Artery Disease f/u questioning aspects of surgery Labs Only f/u last done 08/28/19 Medication Check need losartan refilled Encounter Details Date Type Department Care Team Description 09/18/2019 Office Visit [place] Nate Scruggs MD 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 (Primary Dx); [address] [facility] [address] Paroxysmal atrial fibrillation ([facility]); [place] [address] [place] [address] Stenosis of left subclavian artery ([facility]); [phone] Coronary artery disease involving coronary bypass graft of [place] heart with other forms of angina pectoris ([facility]); [phone] Primary osteoarthritis of right knee (Fax) Allergies Active Allergy Reactions Severity Noted Date Comments Statins Musculoskeletal 08/31/2011 Muscle pain and weakness documented as of this encounter (statuses as of 09/18/2019) Medications Medication Sig Dispensed Refills Start Date End Date Status cyanocobalamin Take 1,000 mcg 0 Active (VITAMIN B-12) 1000 by mouth MCG Oral Tab DAILY. Multiple Take 2 Caps by 0 Active Vitamins-Minerals mouth DAILY. (PRESERVISION AREDS PO) acetaminophen Take 1,000 mg 0 Active (TYLENOL) 500 MG by mouth EVERY Oral Tab SIX HOURS NEEDED for Pain. ELIQUIS 5 MG Oral TAKE 1 TAB BY 180 Tab 3 08/14/2018 Active Tab MOUTH TWICE DAILY. nitroglycerin PLACE 1 TAB 50 Tab 9 11/24/2018 Active (NITROSTAT) 0.4 MG UNDER TONGUE Sublingual SL EVERY FIVE TabIndications: MINUTES Angina pectoris NEEDED FOR (HCC) CHEST PAIN. finasteride Take 1 Tab by 90 Tab 3 01/09/2019 Active (PROSCAR) 5 MG Oral mouth DAILY. Tab amoxicillin TAKE 4 TABLETS 12 Cap 2 01/09/2019 Active (AMOXIL, POLYMOX, ONE HOUR TRIMOX) 500 MG Oral BEFORE DENTAL Cap PROCEDURE mirtazapine Take 1 Tab by 90 Tab 1 02/06/2019 Active (REMERON) 30 MG mouth EVERY Oral Tab BEDTIME. metoprolol Take 0.5 Tabs 135 Tab 3 03/13/2019 Active (LOPRESSOR) 25 MG by mouth Oral DIRECTED. TabIndications: Please cut Angina pectoris tabs in half, (HCC) take 1/2 tab in am and two 1/2 tabs in pm Tamsulosin HCl TAKE 1 CAP BY 90 Cap 3 03/19/2019 Active (FLOMAX) 0.4 MG MOUTH DAILY. Oral Cap Aspirin 81 MG Oral Take 81 mg by 0 Active Tab mouth DAILY. apixaban (ELIQUIS) Take 1 Tab by 180 Tab 3 06/04/2019 Active 5 MG Oral Tab mouth TWICE DAILY. atorvastatin Take 1 Tab by 90 Tab 3 08/24/2019 Active (LIPITOR) 40 MG mouth DAILY. Oral Tab amLodipine Take 1 Tab by 90 Tab 3 08/24/2019 Active (NORVASC) 5 MG Oral mouth DAILY. Tab torsemide (DEMADEX) Take 1 Tab by 30 Tab 11 09/12/2019 Active 20 MG Oral Tab mouth DAILY. losartan (COZAAR) Take 1 Tab by 90 Tab 4 09/18/2019 Active 25 MG Oral Tab mouth DAILY. losartan (COZAAR) Take 1 Tab by 30 Tab 11 09/18/2019 09/18/19 Discontinued 25 MG Oral Tab mouth DAILY. 20 (Reorder) documented as of this encounter (statuses as of 09/18/2019) Active Problems Problem Noted Date Cerebrovascular accident (CVA) due to embolism 11/05/2018 Herniated nucleus pulposus, L3-4 right 02/16/2018 Radicular low back pain 02/02/2018 Chronic pain of right knee 02/02/2018 Closed nondisplaced fracture of shaft of fifth metacarpal bone of left 2017 hand with routine healing Hand pain, left 12/30/2017 Pain in joint involving right pelvic region and thigh 12/30/2017 Solar purpura 12/27/2017 Stenosis of left subclavian artery 12/27/2017 Paroxysmal atrial fibrillation 08/15/2017 Shortness of breath 06/17/2015 CAD (coronary artery disease) 04/17/2014 S/P AVR (aortic valve replacement) 04/17/2014 Angina pectoris 04/17/2014 Actinic keratosis 11/21/2013 Overview: left lower leg History of total right hip replacement 09/07/2012 BMI 26.0-26.9,adult 03/02/2011 BPH (benign prostatic hyperplasia) 09/17/2009 Sensorineural hearing loss, bilateral 09/27/2008 Depression 12/06/2007 HTN (hypertension), benign 10/04/2007 Insomnia 10/04/2007 Personal history of malignant neoplasm of large intestine 08/14/2007 Pure hypercholesterolemia 08/14/2007 Chronic airway obstruction, not elsewhere classified 08/14/2007 Anemia, unspecified 08/14/2007 Hip joint replacement by other means 04/21/2007 Osteoarthrosis, unspecified whether generalized or localized, pelvic 2006 region and thigh Inguinal hernia without mention of obstruction or gangrene, unilateral or 10/2005 unspecified, (not specified as recurrent) Malignant neoplasm of colon 12/29/2004 Erectile dysfunction Macular puckering documented as of this encounter (statuses as of 09/18/2019) Resolved Problems Problem Noted Date Resolved Date BPH (benign prostatic hypertrophy) 10/04/2007 09/17/2009 Overview: Replaced inactive diagnosis Cor Athrscl-Uns Vessel 08/14/2007 07/18/2014 Heart valve replaced by other means 12/01/2004 04/17/2014 documented as of this encounter (statuses as of 09/18/2019) Immunizations Name Administration Dates Next Due H1N1 Injectable Adult 07/08/2009 Influenza (IM) Preservative Free 05/21/2015, 05/14/2014, 04/23/2013, 04/20/2012, 05/13/2011, 05/17/2008 Influenza Vaccine High Dose 05/10/2019, 05/01/2018, 05/18/2017, 05/19/2016 Influenza Vaccine Whole 05/29/2007, 05/20/2004, 05/28/2003, 05/29/2001 Influenza Virus Vaccine Pres Free 6-35 05/11/2010 Months PNEUMOCOCCAL POLYSACCHARIDE VACCINE 07/28/1995 TDAP Vaccine 06/01/2011 ZOSTER (ZOSTAVAX) VACCINE 10/10/2009 dT Vaccine 04/06/2004 documented as of this encounter Social History Tobacco Use Types Packs/Day Years Used Date Former Smoker Pipe 50 Quit: 03/02/2002 Smokeless Tobacco: Never Used Comments: quit 2003 Alcohol Use Drinks/Week oz/Week Comments No 0 Standard drinks or equivalent 0.0 Sex Assigned at Date Recorded Not on file Job Start Date Occupation Industry Not on file Not on file Not on file Travel History Travel Start Travel End No recent travel history available. documented as of this encounter Last Filed Vital Signs Vital Sign Reading Time Taken Comments Blood Pressure 108/58 09/18/2019 6:20 PM EST Pulse 60 09/18/2019 6:20 PM EST Temperature - - Respiratory Rate - - Oxygen Saturation - - Inhaled Oxygen Concentration - - Weight 85.7 kg (189 lb) 09/18/2019 6:20 PM EST Height - - Body Mass Index 26.36 09/11/2019 1:47 PM EST documented in this encounter Progress Notes Nate Sales MD - 09/18/2019 5:50 PM EST PATIENT: Nate Anna : 1930 DATE OF SERVICE: 09/18/2019 CHIEF COMPLAINT: Chief Complaint Patient presents with Transitional Care Management [facility] 07/31-08/03/19 dx: CVA also from skilled to c-house at [facility] concerned with weight gain despite medication (torsemide) Form Completion review MOLST form Hypertension f/u Coronary Artery Disease f/u questioning aspects of surgery Labs Only f/u last done 08/28/19 Medication Check need losartan refilled Subjective HISTORY OF PRESENT ILLNESS: Nate Anna is a 89-y.o. male. HPI This elderly man with coronary disease, bioprosthetic aortic valve, thromboembolic strokes in 2017, had evidence of acute left hemispheric stroke and was admitted to [facility] in late July 2019 when he was noted to have a aphasia with drooling from the right side of his mouth. He had multifocal left-sided frontal lobe infarcts and this was thought by hospitalist team to be artery to artery embolization from the internal carotid artery. CT angiogram of the head showed Hemodynamically significant stenosis of the proximal left internal carotid artery, 70 to 80%, but no evidence for large vessel intracranial thrombosis. 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 His aphasia improved but he still had dysarthria on the day of discharge after a 3-day hospital stay. He was discharged on Eliquis which he had been taking for paroxysmal A. fib, and had aspirin switched to Plavix. He also had hypertension and was started on amlodipine 5 mg a day. He was [facility] to [facility] had speech therapy and physical therapy, had nectar thickened liquids without straws, and did well enough that he was discharged to assisted living after approximately 5 weeks in the retirement. In the retirement he had right knee pain and I injected his right knee with 40 mg of Depo-Medrol, and this has improved his knee pain greatly. He also had hypertension that was difficult to control but this got better after the addition of losartan 25 mg a day. He has had no new neurologic events. He has some easy bruising from his Eliquis with Plavix. He saw vascular surgery nurse practitioner Zeina Pearson and vascular surgeon Dr Saucedo recently, who are in the process of reviewing outside records and will make further recommendations at a follow-up visit later this month. They performed carotid ultrasonography that day with a 0 to 49% stenosis seen in the right internal carotid and a 50 to 69% stenosis seen in the left internal carotid with severe plaque in bilateral bulbs and proximal internal carotids where flow was not visualized due to extensive plaque shadowing. His bioprosthetic aortic valve was thought to be stenosed but detailed assessment of this with spring former hand Dr. Salas in [place] revealed that it did not need replaced again. 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 Patient is now complaining of some dyspnea with exertion and it is unclear as to whether this is a change from earlier in 2019, or just because of general deconditioning due to all the other medical problems he has had. Past Medical History: Diagnosis Date Anemia, unspecified 08/14/2007 BPH Chronic airway obstruction, not elsewhere classified 08/14/2007 Colonic polyp Coronary atherosclerosis of unspecified type of vessel, [place] or graft Eczema Erectile dysfunction HEART VALVE REPLAC NEC 12/01/2004 HIP JOINT REPLACEMENT STATUS 04/21/2007 HTN (hypertension), benign Insomnia Macular puckering MALIGNANT NEOPLASM COLON NOS 12/29/2004 OSTEOARTHROSIS HIP 01/27/2007 Paroxysmal atrial fibrillation (HCC) 08/15/2017 Personal history of malignant neoplasm of large intestine 08/14/2007 Pure hypercholesterolemia 08/14/2007 Family History Problem Relation Age of Onset Stroke Mother Heart Father [place], brain aneurysm Anesth Problems No family history Arthritis No family history Cancer No family history Clotting Disorder No family history Diabetes No family history Heart Disease No family history Hypertension No family history Kidney Disease No family history Thyroid Disease No family history Current Outpatient Medications Medication Sig acetaminophen (TYLENOL) 500 MG Oral Tab Take 1,000 mg by mouth EVERY SIX HOURS NEEDED for Pain. amLodipine (NORVASC) 5 MG Oral Tab Take 1 Tab by mouth DAILY. amoxicillin (AMOXIL, POLYMOX, TRIMOX) 500 MG Oral Cap TAKE 4 TABLETS ONE HOUR BEFORE DENTAL PROCEDURE apixaban (ELIQUIS) 5 MG Oral Tab Take 1 Tab by mouth TWICE DAILY. Aspirin 81 MG Oral Tab Take 81 mg by mouth DAILY. atorvastatin (LIPITOR) 40 MG Oral Tab Take 1 Tab by mouth DAILY. cyanocobalamin (VITAMIN B-12) 1000 MCG Oral Tab Take 1,000 mcg by mouth DAILY. ELIQUIS 5 MG Oral Tab TAKE 1 TAB BY MOUTH TWICE DAILY. finasteride (PROSCAR) 5 MG Oral Tab Take 1 Tab by mouth DAILY. losartan (COZAAR) 25 MG Oral Tab Take 1 Tab by mouth DAILY. metoprolol (LOPRESSOR) 25 MG Oral Tab Take 0.5 Tabs by mouth DIRECTED. Please cut tabs in half, take 1/2 tab in am and two 1/2 tabs in pm mirtazapine (REMERON) 30 MG Oral Tab Take 1 Tab by mouth EVERY BEDTIME. Multiple Vitamins-Minerals (PRESERVISION AREDS PO) Take 2 Caps by mouth DAILY. nitroglycerin (NITROSTAT) 0.4 MG Sublingual SL Tab PLACE 1 TAB UNDER TONGUE EVERY FIVE MINUTES NEEDED FOR CHEST PAIN. Tamsulosin HCl (FLOMAX) 0.4 MG Oral Cap TAKE 1 CAP BY MOUTH DAILY. torsemide (DEMADEX) 20 MG Oral Tab Take 1 Tab by mouth DAILY. No current facility-administered medications for this visit. Allergies Allergen Reactions Statins Musculoskeletal Muscle pain and weakness Social History Socioeconomic History Marital status: Spouse name: Not on file Number of children: Not on file Years of education: Not on file Highest education level: Not on file Occupational History Not on file Social Needs Financial resource strain: Not on file Food insecurity Worry: Not on file Inability: Not on file Transportation needs Medical: Not on file Non-medical: Not on file Tobacco Use Smoking status: Former Smoker Years: 50.00 Types: Pipe Last attempt to quit: 03/02/2002 Years since quittin.5 Smokeless tobacco: Never Used Tobacco comment: quit 2003 Substance and Sexual Activity Alcohol use: No Alcohol/week: 0.0 standard drinks Drug use: No Sexual activity: Yes Partners: Female Lifestyle Physical activity Days per week: Not on file Minutes per session: Not on file Stress: Not on file Relationships Social connections Talks on phone: Not on file Gets together: Not on file Attends faith service: Not on file Active member of club or organization: Not on file Attends meetings of clubs or organizations: Not on file Relationship status: Not on file Intimate partner violence Fear of current or ex partner: Not on file Emotionally abused: Not on file Physically abused: Not on file Forced sexual activity: Not on file Other Topics Concern Not on file Social History Narrative Not on file REVIEW OF SYSTEMS: Review of Systems Constitutional: Negative for malaise/fatigue. Eyes: Negative for blurred vision. Respiratory: Positive for shortness of breath. Cardiovascular: Negative for chest pain. Gastrointestinal: Negative for abdominal pain. Musculoskeletal: Negative for falls. Neurological: Positive for speech change and focal weakness. Negative for seizures and loss of consciousness. Psychiatric/Behavioral: Positive for memory loss. Negative for depression. The patient is not nervous/anxious. Objective PHYSICAL EXAM: VITALS: BP 108/58 (BP Location: Right arm, Patient Position: Sitting) | Pulse 60 | Wt 189 lb (85.7 kg) | BMI 26.36 kg/m Body mass index is 26.36 kg/m . Physical Exam Reveals an elderly man who speaks slowly, but in no acute distress. HEENT is unremarkable. No obvious facial droop. Neck has faint bruit on the left side lungs clear. Heart regular with grade 2/6 systolic ejection murmur at the left sternal border radiating to the aortic area. Extremities have trace1+ edema. He walks with a cane ASSESSMENT / IMPRESSION: ICD-9-CM ICD-10-CM 1. 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 Paroxysmal atrial fibrillation (HCC)stable continue Eliquis 427.31 I48.0 3. Stenosis of left subclavian artery (HCC)might need reassessed given his worsening shortnessof breath 447.1 I77.1 4. Coronary artery disease involving coronary bypass graft of [place] heart with other forms of angina pectoris (HCC)clinically stable 414.05 I25.708 413.9 5. Primary osteoarthritis of right kneebetter after steroid injection 715.16 M17.11 TCM Statement. Review of the hospitalization: I am seeing for transition of care following hospitalization. The date of discharge was: September 12, 2019 The discharge diagnosis was left hemispheric frontal stroke. I reviewed the discharge summary, discharge instructions, and pertinent additional documentation obtained during hospitalization. I reconciled the medications. I also reviewed the Transition of Care documentation done by staff. The tests that were not available at the time of discharge were reviewed. Additional tests which are not yet available include: None Coordination of care. - I am satisfied that appropriate referrals are in place to deal with the problems identified during hospitalization, and that the patient has adequate community resources and support in place. - Additional testing related to hospitilization was requested today: no See orders. I confirmed the patient's understanding of the diagnosis and plan of care. Specific education that was provided today: There are no Patient Instructions on file for this visit. The current and discharge medications were reconciled by an RN, telephonically on September 14, 2019 The source document was written list of medications given to the patient CC: Dr Saucedo, Dr Salas, Dr Neelam Fernando author: Nate Sales MD 09/18/2019 22:22 documented in this encounter Plan of Treatment Date Type Specialty Care Team Description 10/02/2019 Office Visit Vascular Surgery Faizan Saucedo MD [address] [place] [address] [phone] 11/13/2019 Orders Only Cardiology 11/19/2019 Office Visit Cardiology Jose Fernando MD [address] [place] [address] [phone] Health Maintenance Due Date Last Done Comments PNEUMOCOCCAL 65+YRS (1 of 2 07/28/1996 07/28/1995 - PCV13) ZOSTER IMMUNIZATION SERIES 12/05/2009 10/10/2009 (2 of 3) MEDICARE ANNUAL WELLNESS 03/17/2016 03/17/2015 (Previously VISIT completed) DEPRESSION SCREENING 04/06/2020 04/06/2019, 04/06/2019 FALL RISK ASSESSMENT 09/18/2020 09/18/2019, 09/18/2019 DTaP/Tdap/Td Vaccines (3 - 06/01/2021 06/01/2011, 04/06/2004 Tdap) INFLUENZA VACCINE Completed 05/10/2019, 05/01/2018, 05/18/2017, Additional history exists HEPATITIS A IMMUNIZATION Aged Out No longer eligible SERIES based on patient's age to complete this topic HPV IMMUNIZATION SERIES Aged Out No longer eligible based on patient's age to complete this topic MENINGOCOCCAL VACCINE IMM Aged Out No longer eligible based on patient's age to complete this topic documented as of this encounter Goals Goal Patient Goal Associated Recent Patient-Stated? Author Type Problems Progress Blood Pressure Blood Pressure 108/58 No Mónica, < 150/90 (09/18/2019 MD Nate 6:20 PM EST) Note: This is an individualized treatment (blood pressure) goal for Nate Reinosol: Displayed above (on the left) is your goal for blood pressure control. Your most recent blood pressure is also shown above, on the right. You should try to achieve blood pressures that are lower than your goal listed above (on the left). Depression screen (PHQ-9) Depression 3 (04/06/2019 4:15 PM No Nate Sales MD total score < 5 EDT) Note: This is an individualized treatment (depression) goal for Nate Day Gell: Displayed above is your goal for a depression screening (PHQ-9) score that would indicate good control of your depression. Keep a regular sleep schedule Lifestyle No Nate Sales MD Note: This is an individualized lifestyle goal for Nate Anna: Please maintain a regular sleep schedule. This may help with some symptoms of depression. Keep immunizations current Lifestyle No Nate Sales MD Note: This is an individualized lifestyle goal for Nate Anna: Please be sure to keep up-to-date on recommended immunizations. For example, this would include a yearly influenza vaccine. Immunization status can be seen by looking at the Health Maintenance sections of your e[facility], Plan of Care, and any After Visit Summaries. Take all prescribed medications as directed Self-management No Nate Sales MD Note: This is an individualized self-management goal for Nate Anna: Please take all prescribed medications as directed. 1. Do not skip doses. If you cannot afford your medications, talk with your doctor. 2. Use a pill reminder system such as a pill box if needed. Your pharmacist can help you with this. 3. Contact your Pharmacy 5 days before your medication runs out. If you cannot take your medications for any reasons, talk with your doctor. 4. Please bring all of your medication bottles and inhalers (or a list of all your medications/inhalers) with you to every visit. Potential barriers to meeting all of your care plan goals will continue to be addressed on an ongoing basis. documented as of this encounter Implants Implanted Type Area Growth Media Mixer Mushroom Device Shelf Model / Identifier Expiration Serial / Date Lot Bone Screw, Trilogy 6.5*25mm - [id number] Right: Hip KARLEY NABEEL / Implanted: Qty: 1 on 08/21/2012 at [facility] / [id number] Bone Screw, Trilogy 6.5*25mm - [id number] Right: Hip KARLEY NABEEL / Implanted: Qty: 1 on 08/21/2012 at [facility] / [id number] Longevity Liner Std [id number] Id - [id number] Right: Hip KARLEY NABEEL / Implanted: Qty: 1 on 08/21/2012 at [facility] / [id number] Trilogy Cluster Shell 60mm - [id number] Right: Hip KARLEY NABEEL [id number]- [id number] / Implanted: Qty: 1 on 08/21/2012 at [facility] / [id number] Versys Lm Beaded Stem 16 X 160 - [id number] Right: Hip KARLEY NABEEL / Implanted: Qty: 1 on 08/21/2012 at [facility] / [id number] 07/21 Femoral Head -3.5x36mm - [id number] Right: Hip KARLEY NABEEL / Implanted: Qty: 1 on 08/21/2012 at [facility] / [id number] Express Stent Left: [employer] [id number] / Implanted: Qty: 1 on 06/17/2015 by Ramone Cantu MD at [facility] / [id number] documented as of this encounter Results Not on filedocumented in this encounter Visit Diagnoses Diagnosis Paroxysmal atrial fibrillation (HCC) Atrial fibrillation Stenosis of left subclavian artery (HCC) Atherosclerosis of other specified arteries Coronary artery disease involving coronary bypass graft of [place] heart with other forms of angina pectoris (HCC) 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
--- OUTSIDE RECORDS SUMMARY | 2019-09-19 22:56 | XMS REPORT | Summary of Care ---
:1930 Author Organization [facility] [address] Address [address] [facility] [place] [address] Care Team Providers Name Role Phone Nate Sales Primary Care Provider Carine Wang [employer] Nurse Practitioner Primary Care Reason for Visit Reason Comments Carotid Stenosis Refer to Department Only (Routine) Status Reason Specialty Diagnoses / Referred By Referred To Procedures Contact Contact Closed Vascular Surgery Diagnoses Stenosis of left carotid artery Nate Sales MD [place], [address] [place] [address] [address] [facility] Phone: [place] [address] Phone: Encounter Details Date Type Department Care Team Description 09/11/2019 Office Visit [place] Sachin Saucedo Stenosis of left Surgery MD [place] carotid artery [address] [facility] (Primary Dx) [place] [id number] [place] [address] Allergies Active Allergy Reactions Severity Noted Date Comments Statins Musculoskeletal 08/31/2011 Muscle pain and weakness documented as of this encounter (statuses as of 09/16/2019) Medications Medication Sig Dispensed Refills Start Date [...] Tab torsemide (DEMADEX) Take 1 Tab by 90 Tab 3 08/24/2019 09/12/19 Discontinued 10 MG Oral mouth DAILY. 20 (Dose TabIndications: HART Adjustment) (dyspnea on exertion) documented as of this encounter (statuses as of 09/16/2019) Active Problems Problem Noted Date Cerebrovascular accident [...] as of this encounter (statuses as of 09/16/2019) Resolved Problems Problem Noted Date Resolved Date BPH (benign prostatic hypertrophy) 10/04/2007 09/17/2009 Overview: Replaced inactive diagnosis Cor Athrscl-Uns Vessel 08/14/2007 07/18/2014 Heart valve replaced by other means 12/01/2004 04/17/2014 documented as of this encounter (statuses as of 09/16/2019) Immunizations Name Administration Dates Next Due H1N1 [...] Sign Reading Time Taken Comments Blood Pressure 101/60 09/11/2019 1:47 PM right left 102/60 EST Pulse 60 09/11/2019 1:47 PM EST Temperature - - Respiratory Rate - - Oxygen Saturation - - Inhaled Oxygen Concentration - - Weight 83.9 kg (185 lb) 09/11/2019 1:47 PM EST Height 180.3 cm (5' 11") 09/11/2019 1:47 PM EST Body Mass Index 25.8 09/11/2019 1:47 PM EST documented in this encounter Progress Notes Neftali Pearson NP - 09/11/2019 2:20 PM EST PATIENT: Nate Anna : 1930 DATE OF SERVICE: 09/11/2019 REFERRING PRACTITIONER: Nate Sales PRIMARY CARE PROVIDER: Nate Sales CHIEF COMPLAINT: Chief Complaint Patient presents with Carotid Stenosis Subjective HISTORY OF PRESENT ILLNESS: Nate Anna is a 89-y.o. male who was referred for asymptomatic carotid stenosis. He was referred from [facility] after a CT scan indicated left carotid stenosis. Those images are not available at this time. He denies any unilateral monocular blindness, unilateral motor or sensory deficits, aphasia, or dysarthria. Reports he walks with a cane with minimal assistance. He denies any leg pain or cramping with walking or at rest. He denies any open wounds or ulcers on legs or feet. He denies any chest pain or shortness of breath. PMH of CABG, AVR, cardiac stenting, angioplasty, hernia repair, and bilateral hip replacements Past Medical History: Diagnosis Date Anemia, unspecified 08/14/2007 BPH Chronic airway obstruction, not elsewhere classified 08/14/2007 Colonic polyp Coronary atherosclerosis of unspecified type of vessel, [place] or graft Eczema Erectile dysfunction HEART VALVE REPLAC NEC 12/01/2004 HIP JOINT REPLACEMENT STATUS 04/21/2007 HTN (hypertension), benign Insomnia Macular puckering MALIGNANT NEOPLASM COLON NOS 12/29/2004 OSTEOARTHROSIS HIP 01/27/2007 Paroxysmal atrial fibrillation (HCC) 08/15/2017 Personal history of malignant neoplasm of large intestine 08/14/2007 Pure hypercholesterolemia 08/14/2007 Past Surgical History: Procedure Laterality Date ARTHROPLASTY TOTAL HIP 08/21/2012 Procedure: ARTHROPLASTY TOTAL HIP TRILOGY CUP/ BEADED STEM; Surgeon: Evgeny Mckeon MD; Location: [facility] MAIN OR; Laterality: Right; BALO ANGIOP ICRA PRQ 2013 CATARACT EXTRACTION NEC 10/15 bilateral CATHETERIZATION HEART LEFT N/A 04/24/2014 Procedure: CATHETERIZATION HEART LEFT; Surgeon: Ramone Cantu MD; Location: [facility]; Laterality:N/A; CORONARY ARTERIOGRAM, VG, CARLITOS, MANUAL HOLD TO ART SITE, LEFT GROIN CATHETERIZATION HEART RIGHT AND LEFT N/A 12/14/2018 Procedure: CATHETERIZATION HEART RIGHT AND LEFT; Surgeon: Celso Salas MD ; Location: [facility] COLONOSCOPY 08/28/08 due 08/2011 ECHO, TRANS ESOPHOGEAL N/A 12/16/2015 Procedure: ECHO, TRANS ESOPHOGEAL; Surgeon: Jose Fernando MD; Location : [facility] HEART VALVE REPLACEMENT 2002 23mm KS BYPASS GRAFT OTHR,AORTOFEMORAL 1991 KS CABG, VEIN, SINGLE KS ORBIT SURGERY PROC UNLISTED RPR INIT INGUINAL HERNIA OVER 5 2005 SEPTOPLASTY NEC TOTAL HIP REPLACEMENT 02/2007 left TRANSVERSE COLON RESECT 1995 UNLISTED PROCEDURE,MUSCULOSKELE Family History Problem Relation Age of Onset [...] file Gets together: Not on file Attends orthodox service: Not on file Active member of [...] Narrative Not on file REVIEW OF SYSTEMS: as per history of present illness Objective PHYSICAL EXAMINATION: VITALS: BP 101/60 Comment: right left 102/60 | Pulse 60 | Ht 5' 11" (1.803 m ) | Wt 185 lb (83.9 kg) | BMI 25.80 kg/m GENERAL: awake, alert, oriented. HEENT: pupils equal, round, reactive to light, extraocular movement intact. NECK: no mass, no adenopathy, no thyromegaly. EXTREMITIES: no clubbing, cyanosis, or edema. NEUROLOGICAL: Oriented X 3, muscle strength 5/5 throughout FACIAL DROOP: none noted. PULSES: left radial +2 normal and right radial +2 normal. DIAGNOSTICS: 09/11/2019 IMPRESSIONS: 89 year old male with history of left carotid stenosis, has not had carotids look at in over 10 years. Duplex imaging of the bilateral carotids indicates 0 to 49% stenosis of the right internal carotid, there is 50 to 69% stenosis of the left internal carotid , there is severe plaque in the bilateral bulbs and proximal internal carotids where flow is not visualized due to extensive plaque shadowing. Right ICA: 83/15cms Left ICA: 283/42cms The bilateral vertebral arteries show antegrade flow. Bilateral brachial pressures are equal. There is no previous exam available for comparison. Plan ASSESSMENT AND PLAN: Nate Anna is a 89-y.o. male with asymptomatic left internal carotid artery stenosis, approximately 50-69 %. ICD-9-CM ICD-10-CM 1. Stenosis of left carotid artery 433.10 I65.22 REFER TO VASCULAR SURGERY Patient seen with Dr. Saucedo. Recommend continued observation at this time. We will attempt toget copies of scans from [facility]. Patient's questions answered. Continue ASA, Eliquis, and Lipitor. Follow up with Vascular Surgery in 2-[address] scan from [facility], or sooner with problems. Author: Neftali Pearson NP 09/13/2019 16:34 Associated attestation - Faizan Saucedo MD - 09/16/2019 9:06 PM [facility] Supervising MD Documentation Date of Service: [id number] B# [id number] I saw and evaluated the patient. Discussed with resident and agree with the resident's findings andplan as documented in the resident's note. Additional Comments: Patient with symptomatic left internal carotid artery stenosis with recent stroke; outside reports states > 70-80% left internal carotid artery stenosis ; given patient's advanced age and co-morbidities; I discussed continued maximal medical management (stroke risk 15-20% in 5 years) versus Transcarotid artery stent (stroke risk 1-3%); patient wishes for intervention. Patient fully functional without residual deficits. Will request medical records and images from [facility]. Faizan Saucedo MD Supervising Physiciandocumented in this encounter Plan of Treatment Date Type Specialty Care Team Description 10/02/2019 Office Visit Vascular Surgery Faizan Saucedo MD [address] [place] [address] 11/13/2019 Orders Only Cardiology 11/19/2019 Office Visit Cardiology Jose Fernando MD [address] [place] [address] [phone] Health Maintenance Due Date Last Done Comments FALL RISK ASSESSMENT 1996 PNEUMOCOCCAL 65+YRS (1 of 2 07/28/1996 07/28/1995 - PCV13) ZOSTER IMMUNIZATION SERIES 12/05/2009 10/10/2009 (2 of 3) MEDICARE ANNUAL WELLNESS 03/17/2016 03/17/2015 (Previously VISIT completed) DEPRESSION SCREENING 04/06/2020 04/06/2019, 04/06/2019 DTaP/Tdap/Td Vaccines (3 - 06/01/2021 06/01/2011, 04/06/2004 [...] Type Problems Progress Blood Pressure Blood Pressure 101/60 No Mónica, < 150/90 (09/11/2019 MD Nate 1:47 PM EST) Note: This is an individualized treatment (blood pressure) goal for Nate Anna: Displayed above (on the left) is your goal for blood pressure control. Your most recent blood pressure is also shown above, on the right. You should try to achieve blood pressures that are lower than your goal listed above (on the left). Depression screen (PHQ-9) Depression 3 (04/06/2019 4:15 PM Nate Tolliver MD total score < 5 EDT) Note: This is an individualized treatment (depression) goal for Nate Anna: Displayed above is your goal for a depression screening (PHQ-9) score that would indicate good control of your depression. Keep a regular sleep schedule Lifestyle Nate Tolliver MD Note: This is an individualized lifestyle goal for Nate Anna: Please maintain a regular sleep schedule. This may help with some symptoms of depression. Keep immunizations current Lifestyle Nate Tolliver MD Note: This is an individualized lifestyle goal for Nate Anna: Please be sure to keep up-to-date on recommended immunizations. For example, this would include a yearly influenza vaccine. Immunization status can be seen by looking at the Health Maintenance sections of your e[employer], Plan of Care, and any After Visit Summaries. Take all prescribed medications as directed Self-management Nate Tolliver MD Note: This is an individualized self-management [...] of this encounter Implants Implanted Type Area Install And Repair Technician Device Shelf Model / Identifier Expiration Serial / Date Lot Bone Screw, Trilogy 6.5*25mm - [id number] Right: Hip KARLEY NABEEL / Implanted: Qty: 1 on 08/21/2012 at [facility] / [id number] Bone Screw, Trilogy 6.5*25mm - [id number] Right: Hip KARLEYQUOC LEES / Implanted: Qty: 1 on 08/21/2012 at [facility] / [id number] Longevity Liner Std [id number] Id - [id number] Right: Hip KARLEY LEES / Implanted: Qty: 1 on 08/21/2012 at [facility] / [id number] Trilogy Cluster Shell 60mm - [id number] Right: Hip KARLEY LEES 6200- 060-22 / Implanted: Qty: 1 on 08/21/2012 at [facility] / [id number] Versys Lm Beaded Stem 16 X 160 - [id number] Right: Hip KARLEY LEES / Implanted: Qty: 1 on 08/21/2012 at [facility] / [id number] 07/21 Femoral Head -3.5x36mm - [id number] Right: Hip KARLEY LEES / Implanted: Qty: 1 on 08/21/2012 at [facility] / [id number] Express Stent Left: [employer] [id number] / Implanted: Qty: 1 on 06/17/2015 by Ramone Cantu MD at [facility] / [id number] documented as of this encounter Results Not on filedocumented in this encounter Visit Diagnoses Diagnosis Stenosis of left carotid artery Occlusion and stenosis of carotid artery without mention of cerebral infarction documented in this encounter Guarantor Name Account Type Relation to Date of Phone Billing Patient Address Nate Anna Personal/Family 1930 [phone] [address] (Home) [address] [phone] [place], [place] (Work) [id number] documented as of this encounter
[2019-09-20 01:03] VITALS: BP 141/66
== END 2019-09-20 01:03 | disposition home or self-care (01) ==
LOC: ED 22:07
DX: S70.02XA Contusion of left hip, initial encounter (principal); W19.XXXA Unspecified fall, initial encounter; Y92.9 Unspecified place or not applicable; I25.10 Atherosclerotic heart disease of native coronary artery without angina pectoris; I10 Essential (primary) hypertension; J44.9 Chronic obstructive pulmonary disease, unspecified; N40.0 Benign prostatic hyperplasia without lower urinary tract symptoms; Z95.4 Presence of other heart-valve replacement; Z79.01 Long term (current) use of anticoagulants; Z86.73 Personal history of transient ischemic attack (TIA), and cerebral infarction without residual deficits; Z85.038 Personal history of other malignant neoplasm of large intestine; Z87.891 Personal history of nicotine dependence
CPT/HCPCS: 70450; 99283

== ENCOUNTER 2020-11-24 14:51 | Inpatient (IN) ==
[2020-11-24 15:44] LABS: ABS Eosinophils 0.1 10^3/ul (0-0.6); ABS Lymphocytes 1.4 10^3/ul (1.0-4.8); ABS Monocytes 0.6 10^3/ul (0-0.8); ABS Neutrophils 3.2 10^3/ul (1.5-7.7); Eosinophil % 1.5 %; Hematocrit 38 % (42-52); Hemoglobin 12.8 g/dL (14.0-18.0); Lymphocyte % 25.8 %; Mean Corpuscular HGB Conc 34 g/dL (31-36); Mean Corpuscular Hemoglobin 33 pg (27-31); Mean Corpuscular Volume 95 fL (80-94); Mean Platelet Volume 7.3 fL (7.4-10.4); Platelet Count 159 10^3/uL (150-450); Red Blood Count 3.94 10^6 /uL (4.18-5.48); Red Cell Distribution Width 15 % (10-15); White Blood Count 5.4 10^3/uL (3.5-10.8)
[2020-11-24 15:50] LABS: INR 1.43 (0.82-1.09)
[2020-11-24 16:00] LABS: Troponin I 0.01 ng/mL (<0.03)
[2020-11-24 16:18] LABS: Albumin 4.6 g/dL (3.2-5.2); Albumin/Globulin Ratio 1.3 (1-3); BUN/Creatinine Ratio 21.4 (8-20); C Reactive Protein 54.62 mg/L (<8.01); Calcium 9.7 mg/dL (8.6-10.3); EGFR African American 65.2 (>60); EGFR Non-African American 53.9 (>60); Globulin 3.5 g/dL (2-4); Total Bilirubin 0.7 mg/dL (0.2-1.0); Total Protein 8.1 g/dL (6.4-8.9)
[2020-11-24 16:45] LABS: Influenza A Molecular Negative (Negative); Influenza B Molecular Negative (Negative)
[2020-11-24] MEDS ORDERED: Furosemide 20 mg/2 ml IV VIAL IV SLOW PU ONE (19:05)
[2020-11-24] MEDS ORDERED: Albuterol HFA INHALER 8 gm MDI INH PRN (20:11)
[2020-11-24] MEDS ORDERED: Albuterol HFA INHALER 8 gm MDI INH SCH (22:00)
[2020-11-25] MEDS: Albuterol HFA INHALER 8 gm MDI INH SCH ×2 (03:55→07:42)
[2020-11-25] MEDS ORDERED: Albuterol HFA INHALER 8 gm MDI INH PRN (09:42)
[2020-11-25] MEDS ORDERED: Furosemide 40 mg/4 ml IV VIAL IV ONE (10:06)
[2020-11-25] MEDS ORDERED: Perflutren Lipid Microsphere 3 ML VIAL ONE (15:40)
[2020-11-26 04:47] LABS: Calcium 9.5 mg/dL (8.6-10.3); EGFR African American 68.3 (>60); EGFR Non-African American 56.5 (>60); Magnesium 2.2 mg/dL (1.9-2.7); Potassium 3.5 mmol/L (3.5-5.0)
[2020-11-26] MEDS ORDERED: Furosemide 40 mg/4 ml IV VIAL IV ONE (08:19)
[2020-11-26] MEDS ORDERED: Albuterol/Ipratropium NEB.SOL (2.5/0.5 MG) 3 ML NEB.SOLN INH ONE (09:27)
[2020-11-26] MEDS ORDERED: Albuterol/Ipratropium NEB.SOL (2.5/0.5 MG) 3 ML NEB.SOLN INH PRN (09:28)
[2020-11-27 08:00] LABS: ABS Eosinophils 0.1 10^3/ul (0-0.6); ABS Lymphocytes 1.2 10^3/ul (1.0-4.8); ABS Monocytes 0.7 10^3/ul (0-0.8); ABS Neutrophils 4.3 10^3/ul (1.5-7.7); Eosinophil % 1.1 %; Hematocrit 34 % (42-52); Hemoglobin 11.7 g/dL (14.0-18.0); Lymphocyte % 19.1 %; Mean Corpuscular HGB Conc 35 g/dL (31-36); Mean Corpuscular Hemoglobin 33 pg (27-31); Mean Corpuscular Volume 95 fL (80-94); Mean Platelet Volume 7.7 fL (7.4-10.4); Nucleated Red Blood Cells % 0.1; Platelet Count 159 10^3/uL (150-450); Red Blood Count 3.55 10^6 /uL (4.18-5.48); Red Cell Distribution Width 15 % (10-15); White Blood Count 6.2 10^3/uL (3.5-10.8)
[2020-11-27] MEDS ORDERED: Furosemide 40 mg/4 ml IV VIAL IV ONE (08:03)
[2020-11-27 08:14] LABS: Calcium 9.4 mg/dL (8.6-10.3); Magnesium 2.2 mg/dL (1.9-2.7); Potassium 3.2 mmol/L (3.5-5.0)
[2020-11-27] MEDS ORDERED: Potassium Chlor 20 meq TAB.ER PO ONE (09:05)
[2020-11-27] MEDS: Amoxicillin/Clavul 875/125 TAB (Augmentin 875 tab) PO SCH (20:02)
[2020-11-28 09:33] LABS: Blood Urea Nitrogen 30 mg/dL (6-24); CO2 Carbon Dioxide 30 mmol/L (22-32); Chloride 101 mmol/L (101-111); EGFR African American 73.9 (>60); EGFR Non-African American 61.1 (>60); Glucose 114 mg/dL (70-100); Magnesium 2.3 mg/dL (1.9-2.7); Sodium 141 mmol/L (135-145)
[2020-11-28 09:40] LABS: Anion Gap 10 mmol/L (2-11)
[2020-11-28] MEDS: Amoxicillin/Clavul 875/125 TAB (Augmentin 875 tab) PO SCH (09:53)
[2020-11-28 15:10] VITALS: BP 146/67
== END 2020-11-28 15:36 | disposition swing bed (61) | DRG 291 ==
LOC: ED 14:51 → MED 19:51
PROVIDERS: ADMIT Internal Medicine; ATTEND Pediatrics

== ENCOUNTER 2020-11-28 15:37 | Inpatient (IN) ==
[2020-11-28] MEDS ORDERED: Albuterol HFA INHALER 8 gm MDI INH PRN (16:19)
[2020-11-28] MEDS ORDERED: guaiFENesin 100 mg/5 ml LIQ unit dose cup PO PRN (16:25)
[2020-11-28] MEDS: Amoxicillin/Clavul 875/125 TAB (Augmentin 875 tab) PO SCH (21:38)
[2020-11-29] MEDS: Amoxicillin/Clavul 875/125 TAB (Augmentin 875 tab) PO SCH ×2 (09:06→19:58)
[2020-11-30] MEDS: Amoxicillin/Clavul 875/125 TAB (Augmentin 875 tab) PO SCH ×2 (11:34→20:48)
[2020-12-01] MEDS: Amoxicillin/Clavul 875/125 TAB (Augmentin 875 tab) PO SCH (10:15)
[2020-12-01 11:53] VITALS: BP 157/64
== END 2020-12-01 13:40 | DRG 137 ==
LOC: MED 15:37
PROVIDERS: ADMIT Pediatrics; ATTEND Internal Medicine